=== PATIENT | male | born 1945 | race Caucasian/White ===

== ENCOUNTER 2016-08-24 13:26 | Emergency (ER) | payer MEDICARE ==
--- NOTE | 2016-08-24 13:33 | ER Document Report ---
ED General - General Stated Complaint: FALL/KNEE PAIN Time Seen by Provider: 08/24/16 13:33 Mode of Arrival: Ambulatory Information source: Patient Notes: 71 yr old male presents with complaints of right knee pain after a mechanical fall. Patient denies any other complaints, patient was given Toradol prior to arrival and defers on any narcotic treatment TRAVEL OUTSIDE OF THE [place] IN LAST 30 DAYS: No - HPI Onset: Just prior to arrival Onset/Duration: Sudden Quality of pain: Achy Severity: Mild Pain Level: 1 Associated symptoms: Body/muscle aches Exacerbated by: Movement Relieved by: Denies Similar symptoms previously: No Recently seen / treated by doctor: No - Related Data Allergies/Adverse Reactions: No Known Allergies Allergy (Verified 01/28/15 10:47) Past Medical History - Social History Smoking Status: Current Every Day Smoker Cigarette use (# per day): Yes Chew tobacco use (# tins/day): No Smoking Education Provided: No Family History: CAD - Dad had [place] at age 54. - Past Medical History Cardiac Medical History: Reports: Hx Hypertension Endocrine Medical History: Reports: Hx Diabetes Mellitus Type 2 Renal/ Medical History: Reports: Hx Kidney Stones Past Surgical History: Reports: Hx Kidney (Renal Surgery) - kidney stones, Hx Orthopedic Surgery - right knee ligament surgery - Immunizations Hx Diphtheria, Pertussis, Tetanus Vaccination: Yes Hx Pneumococcal Vaccination: 02/24/11 Review of Systems - Review of Systems Notes: REVIEW OF SYSTEMS: CONSTITUTIONAL : Denies fever, chills, or sweats. Denies recent illness. EENT: Denies eye, ear, throat, or mouth pain or symptoms. Denies nasal or sinus congestion or discharge. Denies throat, tongue, or mouth swelling or difficulty swallowing. CARDIOVASCULAR: Denies chest pain. Denies palpitations or racing or irregular heart beat. Denies ankle edema. RESPIRATORY: Denies cough, cold, or chest congestion. Denies shortness of breath, difficulty breathing, or wheezing. GASTROINTESTINAL: Denies abdominal pain or distention. Denies nausea, vomiting , or diarrhea. Denies blood in vomitus, stools, or per rectum. Denies black, tarry stools. Denies constipation. GENITOURINARY: Denies difficulty urinating, painful urination, burning, frequency, blood in urine, or discharge. MUSCULOSKELETAL: Admits to right knee pain SKIN: Denies rash, lesions or sores. HEMATOLOGIC : Denies easy bruising or bleeding. LYMPHATIC: Denies swollen, enlarged glands. NEUROLOGICAL: Denies confusion or altered mental status. Denies passing out or loss of consciousness. Denies dizziness or lightheadedness. Denies headache. Denies weakness or paralysis or loss of use of either side. Denies problems with gait or speech. Denies sensory loss, numbness, or tingling. Denies seizures. PSYCHIATRIC: Denies anxiety or stress. Denies depression, suicidal ideation, or homicidal ideation. ALL OTHER SYSTEMS REVIEWED AND NEGATIVE. Dictation was performed using [employer] recognition software PHYSICAL EXAMINATION: GENERAL: Well-appearing, well-nourished and in no acute distress. HEAD: Atraumatic, normocephalic. EYES: Pupils equal round and reactive to light, extraocular movements intact, sclera anicteric, conjunctiva are normal. ENT: Nares patent, oropharynx clear without exudates. Moist mucous membranes. NECK: Normal range of motion, supple without lymphadenopathy LUNGS: Breath sounds clear to auscultation bilaterally and equal. No wheezes rales or rhonchi. HEART: Regular rate and rhythm without murmurs ABDOMEN: Soft, nontender, nondistended abdomen. No guarding, no rebound. No masses appreciated. Musculoskeletal: Knee is edematous tender to palpation limited range of motion secondary to pain NEUROLOGICAL: Cranial nerves grossly intact. Normal speech, normal gait. Normal sensory, motor exams PSYCH: Normal mood, normal affect. SKIN: Warm, Dry, normal turgor, no rashes or lesions noted. Physical Exam - Vital signs Vitals: Temp Pulse Resp BP Pulse Ox 98.2 F 82 18 135/57 H 95 08/24/16 13:42 08/24/16 13:42 08/24/16 13:42 08/24/16 13:42 08/24/16 13:42 Course - Re-evaluation Re-evalutation: 08/24/16 13:38 X-ray pending 08/24/16 14:23 Dr. Anderson consulted and he will evaluate x-ray hleeives patient has tendon injury, requests immobilizer and follow up on friday08/24/16 15:45 at patientes request 80 cc of blood aspirated from knee , knee immobilizer placed, no complication - Vital Signs Vital signs: Temp Pulse Resp BP Pulse Ox 98.2 F 82 18 135/57 H 95 08/24/16 13:42 08/24/16 13:42 08/24/16 13:42 08/24/16 13:42 08/24/16 13:42 Procedures - Immobilization Right Knee Time completed: 15:50 Pre-Proc Neuro Vasc Exam: Normal Immobilizer type: Knee immobilizer Performed by: PCT Post-Proc Neuro Vasc Exam: Normal Alignment checked and good: Yes - Joint Aspiration Right Knee Time completed: 15:30 Consent obtained: Yes Joint aspiration pre-procedure: Sterile PPE donned, Betadine prep applied Anesthetic type: 1% Lidocaine mL's of anesthetic: 80 Needle size: 14 Amount/type of drainage: blood Number of attempts: 1 Complications: No Discharge - Discharge Clinical Impression: Knee effusion, right Knee injury Qualifiers: Encounter type: initial encounter Laterality: right Qualified Code(s): S89.91XA - Unspecified injury of right lower leg, initial encounter Condition: Stable Disposition: HOME, SELF-CARE Instructions: Suspected Internal Knee Injury ([facility]), Knee Effusion ([facility]), Knee Immobilizing Splint ([facility]) Referrals: JACKIE KU MD [Primary Care Provider] - Follow up as needed LAURE ANDERSON MD [ASSOCIATE] - 08/26/16
--- NOTE | 2016-08-24 14:14 | RADIOLOGY REPORT (SQ) ---
EXAM DESCRIPTION: KNEE RIGHT 4 VIEWS COMPLETED DATE/TIME: 08/24/2016 2:03 pm REASON FOR STUDY: BED 15 +DEFORMITY PER DR MOMIN COMPARISON: None. NUMBER OF VIEWS: Four views of the right knee. Obtained portably. LIMITATIONS: None. FINDINGS: Pronounced osteopenia. Marked medial joint space narrowing. No discrete fracture line de tected. Cross-table lateral view suggests joint effusion with fluid fluid level. This could represe nt lipohemarthrosis related to occult fracture. Regional vascular calcification. OTHER: No other significant finding. IMPRESSION: As above. Suspicious for occult fracture with lipohemarthrosis. Osteopenia limits. EDWARD Rae TECHNICAL DOCUMENTATION: JOB ID: [id number]
[2016-08-24 14:25] VITALS: BP 135/57
[2016-08-24] MEDS ORDERED: LIDOCAINE 1% INJ-PF (10 MG/ML) 30 ML SDV ONE (15:14)
[2016-08-24] MEDS ORDERED: LIDOCAINE 1% INJ-PF (10 MG/ML) 30 ML SDV INJ ONE (15:45)
== END 2016-08-24 16:20 | disposition home or self-care (01) ==
LOC: ER 13:26
PROC: 0S9C3ZZ Drainage of Right Knee Joint, Percutaneous Approach (ICD-10-PCS; principal; 2016-08-24)
DX: M25.461 Effusion, right knee (principal); M25.561 Pain in right knee; M79.1 Myalgia; F17.210 Nicotine dependence, cigarettes, uncomplicated; I10 Essential (primary) hypertension; E11.9 Type 2 diabetes mellitus without complications; Z87.442 Personal history of urinary calculi
CPT/HCPCS: 99283; 73564; 20610; L1830; J3490

== ENCOUNTER 2016-08-25 20:53 | Inpatient (IN) | payer OTHER, MEDICARE ==
[2016-08-25] MEDS ORDERED: MORPHINE SULFATE 10 MG/ML INJ ONE (22:35)
--- NOTE | 2016-08-25 22:43 | RADIOLOGY REPORT (SQ) ---
EXAM DESCRIPTION: HIP RIGHT AP/LATERAL COMPLETED DATE/TIME: 08/25/2016 10:27 pm REASON FOR STUDY: injury COMPARISON: None. NUMBER OF VIEWS: Two views, AP pelvis and cross-table lateral right hip. LIMITATIONS: None. FINDINGS: Osteopenic. Intratrochanteric right proximal femur fracture with slight varus angulation. Slight posterior angulation is also suggested. OTHER: No other gross pelvic fracture. Lumbar spondylosis. IMPRESSION: Right hip fracture as above. TECHNICAL DOCUMENTATION: JOB ID: [id number]
[2016-08-25 23:50] LABS: ALANINE AMINOTRANSFERASE 33 U/L (21-72); ALBUMIN 3.7 g/dL (3.5-5.0); ALKALINE PHOSPHATASE 93 U/L (38-126); ANION GAP 9 (5-19); ASPARTATE AMINO TRANSFERASE 17 U/L (17-59); BILIRUBIN,DIRECT 0.3 mg/dL (0.0-0.4); BILIRUBIN,TOTAL 0.8 mg/dL (0.2-1.3); BLOOD UREA NITROGEN 16 mg/dL (7-20); CALCIUM 8.7 mg/dL (8.4-10.2); CARBON DIOXIDE 29 mmol/L (22-30); CHLORIDE 101 mmol/L (98-107); CREATININE RESULT 0.88 mg/dL (0.52-1.25); GLUCOSE 121 mg/dL (75-110); POTASSIUM 3.5 mmol/L (3.6-5.0); SODIUM 138.6 mmol/L (137-145); TOTAL PROTEIN 6.7 g/dL (6.3-8.2)
[2016-08-25 23:53] LABS: ABSOLUTE MONOCYTES (AUTO) 0.8 10^3/uL (0.1-1.4); ABSOLUTE NEUT (AUTO) 10.3 10^3/uL (1.7-8.2); BASOPHILS % (AUTO) 0.3 % (0-2); EOSINOPHILS % (AUTO) 0.3 % (0-6); HEMATOCRIT 37.8 % (37.9-51.0); HEMOGLOBIN 12.4 g/dL (13.5-17.0); HGB HCT DIFFERENCE -0.6; LYMPHOCYTES % (AUTO) 7.8 % (13-45); MEAN CORPUSCULAR HEMOGLOBIN 31.7 pg (27.0-33.4); MEAN CORPUSCULAR HGB CONC 32.7 g/dL (32.0-36.0); MEAN CORPUSCULAR VOLUME 97 fl (80-97); MONOCYTES % (AUTO) 6.5 % (3-13); RED CELL DISTRIBUTION WIDTH 14.2 % (11.5-14.0); SEGMENTED NEUTROPHILS % (AUTO) 85.1 % (42-78); WHITE BLOOD COUNT 12.1 10^3/uL (4.0-10.5)
--- NOTE | 2016-08-25 23:53 | ER Document Report ---
ED Hip Pain/Injury - General Chief Complaint: Hip Injury Stated Complaint: FALL,HIP PAIN Time Seen by Provider: 08/25/16 22:36 Notes: Patient fell on his right hip earlier and now cannot stand or bear weight or walk on that leg. Patient was just here yesterday having twisted his right knee. His x-ray of the knee showed lipohemarthrosis suggesting an occult fracture. He was put in a knee immobilizer and to see Dr. Collazo in his office tomorrow. However, this afternoon he was trying to get up from the couch and manage the knee immobilizer and crutches and fell onto his right hip. No other injuries. Specifically, no head or neck injury or deficits. Denies nausea or vomiting. Denies urinary tract symptoms. Denies cough or cold or chest congestion. Denies fever. History of surgery on the right knee many years ago TRAVEL OUTSIDE OF THE [place] IN LAST 30 DAYS: No - Related Data Allergies/Adverse Reactions: No Known Allergies Allergy (Verified 08/25/16 22:59) Past Medical History - Social History Smoking Status: Current Every Day Smoker Frequency of alcohol use: None Drug Abuse: None Family History: Reviewed & Not Pertinent, CAD - Dad had [place] at age 54. Patient has suicidal ideation: No Patient has homicidal ideation: No - Past Medical History Cardiac Medical History: Reports: Hx Hypertension Endocrine Medical History: Reports: Hx Diabetes Mellitus Type 2 Renal/ Medical History: Reports: Hx Kidney Stones Past Surgical History: Reports: Hx Kidney (Renal Surgery) - kidney stones, Hx Orthopedic Surgery - right knee ligament surgery - Immunizations Hx Diphtheria, Pertussis, Tetanus Vaccination: Yes Hx Pneumococcal Vaccination: 02/24/11 Review of Systems - Review of Systems Notes: REVIEW OF SYSTEMS: CONSTITUTIONAL : Denies fever. EENT: Denies eye, ear, nose or mouth or throat pain or other symptoms. CARDIOVASCULAR: Denies chest pain. RESPIRATORY: Denies cough, chest congestion, or shortness of breath. GASTROINTESTINAL: Denies abdominal pain or nausea, vomiting, or diarrhea. GENITOURINARY: Denies difficulty or painful urinating, urinary frequency, blood in urine. MUSCULOSKELETAL: Denies back or neck pain. Pain in right hip, see HPI. Denies other joint pain or swelling. SKIN: Denies rash or skin lesions. NEUROLOGICAL: Denies LOC or altered mental status. Denies headache. Denies sensory loss or motor deficits. ALL OTHER SYSTEMS REVIEWED AND NEGATIVE. Physical Exam - Vital signs Vitals: Temp Pulse Resp BP Pulse Ox 98.2 F 95 18 165/84 H 96 08/25/16 21:07 08/25/16 21:07 08/25/16 21:07 08/25/16 21:07 08/25/16 21:07 Interpretation: Normal - Notes Notes: PHYSICAL EXAMINATION: GENERAL: Well-appearing, in no acute distress. Vital signs are all essentially normal. HEAD: Atraumatic, normocephalic. ENT: oropharynx clear without exudates. Moist mucous membranes. NECK: Normal range of motion, supple. LUNGS: Breath sounds clear and equal bilaterally. HEART: Regular rate and rhythm without murmurs. ABDOMEN: Soft, nontender. No guarding or rebound. BACK: No tenderness throughout entire back. EXTREMITIES: Pain in the right hip to press there and also with any movement of the right hip the patient has significant pain. Right leg in a knee immobilizer. I unwrapped the knee immobilizer and patient has an Christopher bandage around the knee itself. I palpated that area and I do not feel a lot of effusion. NEUROLOGICAL: Normal speech, unable to walk or bear weight on the right leg. Normal sensory, motor, and reflex exams. Awake, alert, and oriented x3. Cranial nerves normal. PSYCH: Normal mood, normal affect. SKIN: Warm, dry, no rashes. Course - Vital Signs Vital signs: Temp Pulse Resp BP Pulse Ox 98.2 F 95 18 165/84 H 96 08/25/16 21:07 08/25/16 21:07 08/25/16 21:07 08/25/16 21:07 08/25/16 21:07 - Laboratory Result Diagrams: 08/25/16 23:20 08/25/16 23:20 Laboratory results interpreted by me: 08/25/16 08/25/16 23:20 23:20 WBC 12.1 H RBC 3.90 L Hgb 12.4 L Hct 37.8 L RDW 14.2 H Seg Neutrophils % 85.1 H Lymphocytes % 7.8 L Absolute Neutrophils 10.3 H Potassium 3.5 L Glucose 121 H - Diagnostic Test Radiology results interpreted by me: 08/25/16 23:56 Patient x-ray reveals an intertrochanteric fracture of the right hip. I spoke with Dr. Velazquez, completion manager for Ortho and he asked that the patient be admitted to the hospitalist service. I spoke with Dr. Armenta who agreed to admit the patient. Patient will be admitted to telemetry. 08/26/16 00:03 Chest x-ray reveals COPD but no acute processes. Discharge - Discharge Clinical Impression: Intertrochanteric fracture of right hip Qualifiers: Encounter type: initial encounter Fracture type: closed Fracture alignment: nondisplaced Qualified Code(s): S72.144A - Nondisplaced intertrochanteric fracture of right femur, initial encounter for closed fracture Disposition: ADMITTED INPATIENT Admitting Provider: Hospitalist Unit Admitted: Telemetry
--- NOTE | 2016-08-25 23:58 | EKG REPORT ---
SEVERITY:- BORDERLINE ECG - SINUS RHYTHM BORDERLINE PROLONGED QT INTERVAL : Confirmed by: Armando Tripp 25-Aug-2016 23:58:09
--- NOTE | 2016-08-26 | RADIOLOGY REPORT (SQ) ---
EXAM DESCRIPTION: CHEST PA/LAT COMPLETED DATE/TIME: 08/25/2016 11:47 pm REASON FOR STUDY: Fracture hip, COPD COMPARISON: 01/28/2015. TECHNIQUE: Frontal and lateral radiographic views of the chest acquired. NUMBER OF VIEWS: Two view. LIMITATIONS: None. FINDINGS: LUNGS AND PLEURA: No opacities, masses or pneumothorax. No pleural effusion. MEDIASTINUM AND HILAR STRUCTURES: No masses or contour abnormalities. HEART AND VASCULAR STRUCTURES: Heart normal size. No evidence for failure. BONES: Osteopenic. HARDWARE: None in the chest. OTHER: No other significant finding. IMPRESSION: NO SIGNIFICANT RADIOGRAPHIC FINDING IN THE CHEST. TECHNICAL DOCUMENTATION: JOB ID: [id number] [employer]- All Rights Reserved
[2016-08-26 01:55] LABS: ADD ON TESTING BLD IN LAB ACKNOWLEDGE
[2016-08-26 02:07] LABS: MAGNESIUM 1.8 mg/dL (1.6-2.3)
[2016-08-26 02:43] LABS: APPEARANCE,URINE CLEAR; BILIRUBIN,URINE NEGATIVE (NEGATIVE); GLUCOSE, URINE 50 mg/dL (NEGATIVE); KETONES,URINE TRACE mg/dL (NEGATIVE); LEUKOCYTE ESTERASE,URINE TRACE (NEGATIVE); NITRITE,URINE NEGATIVE (NEGATIVE); PROTEIN,URINE NEGATIVE (NEGATIVE); URINE SPECIFIC GRAVITY 1.013; UROBILINOGEN,URINE NEGATIVE mg/dL (<2.0)
[2016-08-26] MEDS ORDERED: NICOTINE 21 MG/24 HR PATCH.TD24 TD PRN (02:48)
[2016-08-26] MEDS ORDERED: MAGNESIUM HYDROXIDE SUSP 30 ML UDCUP PO PRN ×2 (02:51→15:17)
[2016-08-26] MEDS ORDERED: GLUCAGON,HUMAN RECOMB 1 MG INJ SUBCUT PRN (02:51)
[2016-08-26] MEDS ORDERED: DEXTROSE 50%-WATER 25 GM/50 ML DISP.SYRIN IV PRN ×2 (02:51)
[2016-08-26] MEDS ORDERED: IPRATROPIUM/ALBUTEROL 0.5-2.5 MG/3 ML AMPUL NEB PRN (02:51)
[2016-08-26] MEDS ORDERED: DEXTROSE 40% GEL 15 GM TUBE PO PRN ×2 (02:51)
[2016-08-26] MEDS ORDERED: NORMAL SALINE 1000 ML 1,000 ML IV PRN (02:54)
[2016-08-26] MEDS ORDERED: PROMETHAZINE HCL 25 MG TABLET PO PRN (02:57)
[2016-08-26] MEDS ORDERED: POTASSIUM CHLORIDE 20 MEQ/15 ML UDCUP PO ONE ×2 (03:00→05:00)
--- NOTE | 2016-08-26 03:12 | PDOC H&P ---
History of Present Illness Admission Date/PCP: 08/26/16 00:12 MS Patient complains of: right hip pain, S/P fall History of Present Illness: GEETHA NAVARRO is a 71 year old male with underlying hypertension, nephrolithiasis, psoriasis, partial hearing loss who presents to the emergency room for evaluation of above complaint. Patient has been discussed with emergency room physician who evaluated the patient. Patient is globally disoriented and is able to provide no history whatsoever in terms of acute or chronic events, review of systems, personal habits, family history, etc. No friends or family are present. Old inpatient records are reviewed. Patient did tell the emergency room doctor earlier that he did not pass out and did not strike his head when he fell. Denied any other injuries. He was actually seen in the emergency room on the first after suffering a fall and twisting his right knee, with x-ray showing evidence of probably an occult fracture. Was placed in a knee immobilizer that time, and is actually scheduled to see Dr. Collazo in his office on the third. However, the afternoon of the second, as he was attempting to get up from his couch and manage his knee immobilizer and crutches, he fell onto his right hip. Could no longer stand due to the pain. X-rays revealed a right hip fracture. Orthopedics is aware and has agreed to manage this fracture. Denies nausea vomiting, fever chills, diarrhea or dysuria. No chest or abdominal pain. Laboratory results are listed in [facility] and are reviewed. X-ray summary results are listed below, with full report(s) reviewed. . EKG reviewed and compared to a prior tracing from January 30, 2015. Social history: . No further information available at this point in time. No known drug allergies. Home medications initially autopopulated into [employer] may not accurately reflect patient's true medications, dosages, and/or frequencies. lawn technician to reconcile medications. Unfortunately, patient not able to provide any information related to medications/dosages/frequencies. REVIEW OF SYSTEMS: See history and present illness. No further information available this point in time. PHYSICAL EXAMINATION: 6 feet 1 inches tall. 72.6 kg. BMI 21.1 kg/m. Pulse 87 and regular. 98% saturation on room air. Respirations are 17 and unlabored. Blood pressure 152/ 80. Temperature 98.1. Thin somewhat disheveled chronically ill-appearing bearded male who appears a bit older than his stated age. Pleasant awake alert and cooperative. No obvious distress other than somewhat anxious. Skin is warm and dry. No grossly obvious evidence of rash in areas of skin examined. No subcutaneous nodules palpated. Scattered small areas of psoriasis on his head and neck. ENT: Hearing grossly normal to normal conversation. Tongue midline on protrusion pink and slightly tacky. No willis sign. Eyes: No scleral icterus. Pupils equal and reactive to light at 4 mm. [place] conjunctivae. No raccoon eyes. Neck is supple and nontender to gentle active range of motion and palpation. Midline trachea. No palpable thyroid nodule mass enlargement or tenderness. Lymphatic: No palpable cervical or clavicular nodes. Neck and lymphatic exams limited by patient body habitus. Psychiatric: Globally disoriented. Provides non sequitur answers to basic questions. Lungs: Auscultation reveals clear and equal breath sounds bilaterally. No use of accessory respiratory muscles. Cardiovascular: Heart regular rate and rhythm, without gallop murmur or rub. No carotid or abdominal aortic bruits. No ankle or pedal edema. Palpable dorsalis pedis pulses. Abdomen:soft slightly distended nontender with positive bowel sounds. Unable to adequately evaluate abdomen for masses or organomegaly due to distention. Extremities: Feet are warm and dry. No calf tenderness to compression. No grossly obvious visual evidence of calf swelling. Gentle manipulation of left lower extremity fails to reveal any obvious evidence of injury or instability to knee hip or ankle. Christopher wrap in place around his right knee; left in place. Slight external rotation and foreshortening of the right lower extremity. No manipulation of right lower extremity attempted. Neurologic: Moves upper extremities grossly normally. Left patellar reflex absent; not attempted on right due to his injury.. Absent left Babinski; not checked on right due to his injury.. Light touch cannot be adequately evaluated due to his mental status.. Dorsiflexion and plantarflexion of feet 5 / 5 and symmetric. Past Medical History Past Medical History: Information from old records; patient cannot provide any information himself. Cardiac Medical History: Reports: Hypertension Endocrine Medical History: Reports: Diabetes Mellitus Type 2 Past Surgical History Past Surgical History: Information from old records; patient cannot provide any information himself. Past Surgical History: Reports: Orthopedic Surgery - right knee ligament surgery Social History Information Source: Emergency Med Personnel, [facility] Records Lives with: Family Smoking Status: Current Every Day Smoker - 1 pack a day. Frequency of Alcohol Use: None Hx Recreational Drug Use: No Drugs: None Hx Prescription Drug Abuse: No - Advance Directive Resuscitation Status: Do Not Resuscitate Surrogate healthcare decision maker:: Keenan Cornejo Family History Family History: Reviewed & Not Pertinent, CAD - Dad had [place] at age 54. Parental Family History Reviewed: No - Patient cannot provide any information related to same. Children Family History Reviewed: No - Patient cannot provide any information related to same. Sibling(s) Family History Reviewed.: No - Patient cannot provide any information related to same. Medication/Allergy Home Medications: RX: Metformin HCl [Glucophage 500 mg Tablet] 500 mg PO BID 09/07/11 Ciprofloxacin HCl [Cipro 500 mg Tablet] 500 mg PO BID #20 tablet 09/29/13 Tamsulosin HCl [Flomax 0.4 mg Cap.sr] 0.4 mg PO DAILY #7 cap.sr.24h 09/29/13 RX: Atenolol [Tenormin 50 mg Tablet] 50 mg PO Q12 08/26/16 RX: Clobetasol Propionate [Temovate 0.05% Cream 15 gm] 1 applic TP BID 08/26/16 RX: Nitroglycerin [Nitrostat 0.4 mg (1/150 Gr) Tabs 25/Bottle] 1 tab SL Q5MP PRN 08/26/16 RX: Selenium Sulfide 1 applic TP ASDIR PRN 08/26/16 Hydrocodone/Acetaminophen [Aspers 5-325 mg Tablet] 1 tab PO Q4HP PRN #20 tablet 08/30/16 RX: Acetaminophen [Tylenol 325 mg Tablet] 650 mg PO Q4HP PRN tablet 08/30/16 RX: Docusate Sodium [Colace 100 mg Capsule] 100 mg PO BID capsule 08/30/16 RX: Magnesium Hydroxide [Milk of Magnesia 30 ml Udcup] 30 ml PO Q48HP PRN udc 08/30/16 RX: Nicotine [Nicoderm 21 mg/24 Hr Transderm Patch] 1 each TD DAILYP PRN patch.td24 08/30/16 RX: Rivaroxaban [Xarelto 10 mg Tablet] 10 mg PO QHS tablet 08/30/16 Allergies/Adverse Reactions: No Known Allergies Allergy (Verified 08/25/16 22:59) Physical Exam Vital Signs: Temp Pulse Resp BP Pulse Ox 98.1 F 95 18 160/82 H 96 08/25/16 23:30 08/25/16 23:30 08/25/16 23:30 08/25/16 23:30 08/25/16 23:30 Results Laboratory Results: 08/26/16 02:25 Urine Color YELLOW Urine Appearance CLEAR Urine pH 6.0 Ur Specific [place] 1.013 Urine Protein NEGATIVE Urine Glucose (UA) 50 H Urine Ketones TRACE H Urine Blood SMALL H Urine Nitrite NEGATIVE Ur Leukocyte Esterase TRACE H Urine WBC (Auto) 8 Urine RBC (Auto) 4 Impressions: Hip/Pelvis X-Ray 08/25/16 00:00 IMPRESSION: Right hip fracture as above. Chest X-Ray 08/25/16 23:11 IMPRESSION: NO SIGNIFICANT RADIOGRAPHIC FINDING IN THE CHEST. Assessment & Plan - Diagnosis (1) Abnormal urinalysis Is this a current diagnosis for this admission?: YesPlan: Urine culture. (2) Confusion Is this a current diagnosis for this admission?: YesPlan: Probably due to an element of underlying dementia. Further outpatient workup per primary care provider. (3) Intertrochanteric fracture of right hip Qualifiers: Encounter type: initial encounter Fracture type: closed Fracture alignment: nondisplaced Qualified Code(s): S72.144A - Nondisplaced intertrochanteric fracture of right femur, initial encounter for closed fracture Is this a current diagnosis for this admission?: YesPlan: Dr. Collazo, on-call orthopedist, is aware of injury, and will manage patient. Knee high SCDs for DVT prophylaxis; medication prophylaxis per orthopedics, per usual protocol. Impression and plans were discussed with patient who concurs. Time spent in evaluation and management of patient: 58 minutes. (4) Knee injury Qualifiers: Encounter type: initial encounter Laterality: right Qualified Code( s): S89.91XA - Unspecified injury of right lower leg, initial encounter Is this a current diagnosis for this admission?: YesPlan: Dr. Collazo, on-call orthopedist, is aware of injury, and will manage patient. (5) DNR (do not resuscitate) Is this a current diagnosis for this admission?: YesPlan: Implications of DO NOT RESUSCITATE/DO NOT INTUBATE status discussed with keenan Cronejo at 2:45 AM, August 26, 2016, by telephone. Patient is a . Clemente is patient's surrogate healthcare decision maker. Discussed in layperson's terms. Implications understood. Son's conversation is lucid and appropriate. Son desires DO NOT RESUSCITATE/DO NOT INTUBATE status , as has been the case in previous admissions, per review of old records. Will honor his wishes. (6) Hypokalemia Is this a current diagnosis for this admission?: YesPlan: Potassium supplement. (7) Hypertension Qualifiers: Hypertension type: essential hypertension Qualified Code(s): I10 - Essential (primary) hypertension Is this a current diagnosis for this admission?: YesPlan: Resume home medications as appropriate once these have been determined and reviewed. (8) Tobacco abuse Is this a current diagnosis for this admission?: YesPlan: As needed nicotine patch. - Inpatient Certification Based on my medical assessment, after consideration of the patient's comorbidities, presenting symptoms, or acuity I expect that the services needed warrant INPATIENT care.: Yes I certify that my determination is in accordance with my understanding of Medicare's requirements for reasonable and necessary INPATIENT services [42 CFR 412.3e].: Yes Medical Necessity: Need For IV Fluids, Need for Pain Control, Need for Surgery, Risk of Diagnosis Which Will Require Inpatient Eval/Care/Monitoring Post Hospital Care: D/C or Transfer Summary
[2016-08-26 06:31] LABS: ABSOLUTE LYMPHOCYTES (AUTO) 1.2 10^3/uL (0.5-4.7); ABSOLUTE MONOCYTES (AUTO) 1.2 10^3/uL (0.1-1.4); ABSOLUTE NEUT (AUTO) 9.2 10^3/uL (1.7-8.2); BASOPHILS % (AUTO) 0.3 % (0-2); EOSINOPHILS % (AUTO) 0.1 % (0-6); HEMATOCRIT 34.1 % (37.9-51.0); HEMOGLOBIN 11.4 g/dL (13.5-17.0); HGB HCT DIFFERENCE 0.1; LYMPHOCYTES % (AUTO) 10.2 % (13-45); MEAN CORPUSCULAR HEMOGLOBIN 31.5 pg (27.0-33.4); MEAN CORPUSCULAR HGB CONC 33.5 g/dL (32.0-36.0); MEAN CORPUSCULAR VOLUME 94 fl (80-97); MONOCYTES % (AUTO) 10.2 % (3-13); RED BLOOD COUNT 3.62 10^6/uL (4.35-5.55); RED CELL DISTRIBUTION WIDTH 13.9 % (11.5-14.0); SEGMENTED NEUTROPHILS % (AUTO) 79.2 % (42-78); WHITE BLOOD COUNT 11.7 10^3/uL (4.0-10.5)
[2016-08-26 07:13] LABS: PROTHROMBIN TIME 16.1 SEC (11.4-15.4)
[2016-08-26 07:14] LABS: PARTIAL THROMBOPLASTIN TIME 36.5 SEC (23.5-35.8)
--- NOTE | 2016-08-26 07:34 | PDOC CONSULTATION ---
Consultation Consult Date: 08/26/16 Consult reason:: Right hip fracture History of Present Illness Admission Date/PCP: 08/26/16 02:51 History of Present Illness: This is a 71-year-old white male who initially presented to the emergency room several days ago with a tentative diagnosis of a right knee extensor mechanism disruption. He then re-presented to the emergency room unable to bear weight on the right lower extremity and diagnosed with a right basicervical femoral neck fracture. Past Medical History Cardiac Medical History: Reports: Hypertension Endocrine Medical History: Reports: Diabetes Mellitus Type 2 Social History Information Source: [facility] Records Lives with: Family Smoking Status: Current Every Day Smoker Frequency of Alcohol Use: None Hx Recreational Drug Use: No Drugs: None Hx Prescription Drug Abuse: No - Advance Directive Resuscitation Status: Do Not Resuscitate Family History Family History: Reviewed & Not Pertinent, CAD - Dad had [place] at age 54. Parental Family History Reviewed: No Children Family History Reviewed: No Sibling(s) Family History Reviewed.: No Medication/Allergy Home Medications: Metformin HCl [Glucophage 500 mg Tablet] 500 mg PO BID 09/07/11 Ciprofloxacin HCl [Cipro 500 mg Tablet] 500 mg PO BID #20 tablet 09/29/13 Tamsulosin HCl [Flomax 0.4 mg Cap.sr] 0.4 mg PO DAILY #7 cap.sr.24h 09/29/13 Allergies/Adverse Reactions: No Known Allergies Allergy (Verified 08/25/16 22:59) Review of Systems All systems: as per [facility] Physical Exam Vital Signs: Temp Pulse Resp BP Pulse Ox 36.7 C 100 18 152/62 H 96 08/26/16 03:05 08/26/16 04:04 08/26/16 03:05 08/26/16 03:05 08/26/16 03:05 Intake & Output 08/25/16 08/26/16 08/27/16 06:59 06:59 06:59 Intake Total 100 Output Total 350 Balance -250 General appearance: PRESENT: no acute distress, thin Head exam: PRESENT: normocephalic Eye exam: PRESENT: EOMI Respiratory exam: PRESENT: unlabored Cardiovascular exam: PRESENT: RRR Pulses: PRESENT: +1 pedal pulses bilateral Vascular exam: PRESENT: normal capillary refill GI/Abdominal exam: PRESENT: soft Rectal exam: PRESENT: deferred Extremities exam: PRESENT: other - Knee is wrapped in an Christopher wrap. This is removed. There is a considerable right knee effusion. Patient is unable to extend the right knee. Overall alignment of the right lower extremity shortened and externally rotated. Passive range of motion is painful. Distal neurovascular examination is intact. Neurological exam: PRESENT: alert, other - Patient is confused and inappropriate in his verbal responses Skin exam: PRESENT: dry, intact, warm. ABSENT: cyanosis, rash Results Laboratory Results: 08/26/16 06:22 08/26/16 06:22 WBC 11.7 H RBC 3.62 L Hgb 11.4 L Hct 34.1 L MCV 94 MCH 31.5 MCHC 33.5 RDW 13.9 Plt Count 198 Seg Neutrophils % 79.2 H Lymphocytes % 10.2 L Monocytes % 10.2 Eosinophils % 0.1 Basophils % 0.3 Absolute Neutrophils 9.2 H Absolute Lymphocytes 1.2 Absolute Monocytes 1.2 Absolute Eosinophils 0.0 Absolute Basophils 0.0 Impressions: Hip/Pelvis X-Ray 08/25/16 00:00 IMPRESSION: Right hip fracture as above. Chest X-Ray 08/25/16 23:11 IMPRESSION: NO SIGNIFICANT RADIOGRAPHIC FINDING IN THE CHEST. Status: Imported from PACS Assessment & Plan - Diagnosis (1) Displaced fracture of right femoral neck Is this a current diagnosis for this admission?: YesPlan: With basicervical right femoral neck fracture. Plan will be for proximal femoral hemiarthroplasty under choice anesthesia. (2) Rupture of right patellar tendon Is this a current diagnosis for this admission?: YesPlan: The patient's mental status makes it difficult if not impossible to extract any meaningful information. Of note in the chart as previous extensor mechanism surgery. At this point I think more information needs to be gathered before making a treatment plan. - Time Time Spent: 50 to 70 Minutes Anticipated discharge: SNF Within: Other
[2016-08-26] MEDS ORDERED: TRANEXAMIC ACID INJ/PF 1,000 MG/10 ML SDV IV PRN (08:37)
[2016-08-26] MEDS ORDERED: VANCOMYCIN HCL 1,000 MG in DEXTROSE 5%-WATER 250 ML IV PRN (08:37)
[2016-08-26] MEDS ORDERED: RINGERS SOLUTION,LACTATED 1,000 ML IV PRN (08:38)
[2016-08-26] MEDS ORDERED: ONDANSETRON HCL INJ/PF 4 MG/2 ML SDV ONE (09:07)
[2016-08-26] MEDS ORDERED: LIDOCAINE 2% INJ-PF (20 MG/ML) 10 ML AMPUL ONE (09:07)
[2016-08-26] MEDS ORDERED: DEXAMETHASONE SOD PHOSPHATE INJ 4 MG/1 ML VIAL ONE (09:07)
[2016-08-26] MEDS: DOCUSATE SODIUM 100 MG CAPSULE PO SCH ×2 (10:40→17:24)
--- NOTE | 2016-08-26 10:58 | PROGRESS NOTE E ---
Progress Note NAME: GEETHA NAVARRO : 1945 AGE: 71Y DATE: 08/26/2016 ROOM: 402 SUBJECTIVE: The patient is lying in bed. He states he feels okay today. He is going to the OR this morning. The patient denies any nausea, vomiting, or diarrhea. No shortness of breath, dizziness, or chest pain. No fever or chills. The patient has been afebrile. His blood pressures have been in a good range. The patient does not voice any other concerns at this time. REVIEW OF SYSTEMS: Rest of the review of systems negative. MEDICATIONS: Have been reviewed. OBJECTIVE: GENERAL: The patient is a 71-year-old male who is awake and alert. He is oriented to person, place, time, and situation. He is verbal, conversational, ambulatory, and does not appear to be in any acute distress. VITAL SIGNS: Temperature 98.2, pulse 91, respirations 12, blood pressure 132/75, oxygen saturation is 100% on room air. SKIN: Warm and dry. No rash. He is not diaphoretic. HEENT: Pupils equal, round, reactive to light and accommodation. Conjunctivae are pink. No JVP. CARDIOVASCULAR: Heart is regular. There is no murmur or rub. CHEST: Clear, symmetrical, unlabored. ABDOMEN: Soft, nontender, nondistended. BACK: No CVA tenderness or sacral edema. EXTREMITIES: No clubbing, cyanosis, or edema. PSYCHIATRIC: Appropriate affect. Pleasant mood. DIAGNOSTICS: Lab values are as follows: Hematology obtained on 08/26/2016: WBCs are 11.7, hemoglobin is 11.4, hematocrit is 34.1, platelet count is 198,000. Chemistry obtained on 08/26/2016: Potassium is 3.8, troponin is 0.012, magnesium is 1.8. Microbiology obtained on 08/26/2016 is pending. IMPRESSION AND PLAN: 1. RIGHT BASICERVICAL FEMORAL NECK FRACTURE. The patient is to go to the OR today. Will consult for SNF placement and follow. 2. HYPERTENSION. It appears the patient has not been taking his medications. Will resume an MARGARITA inhibitor and follow. 3. ABNORMAL URINALYSIS. Urine culture is pending. Will follow. 4. TOBACCO DEPENDENCY. Spend 3 minutes discussing tobacco cessation education. The patient declines any pharmacological intervention at this time but is agreeable to a p.r.n. nicotine patch. 5. DIABETES MELLITUS TYPE 2. Looks like this is fairly well controlled. Will continue sliding scale coverage. 6. DVT PROPHYLAXIS. As per Orthopedics. DISPOSITION: The patient is a DO NOT RESUSCITATE/DO NOT INTUBATE. Pending patient's symptomatology and diagnostic findings, will reevaluate in the a.m. Time spent on this followup including assessment, plan, physical examination, patient education, and review of records is 30 minutes. DICTATING PHYSICIAN: SHREE ARNOLD NP [id number] PHY#: [id number] [id number] JOB#: [id number] ACCT: [id number] cc: >
[2016-08-26] MEDS: MORPHINE SULFATE 10 MG/ML INJ IV PRN ×2 (13:03→22:33)
[2016-08-26] MEDS ORDERED: NITROGLYCERIN 0.4 MG/TAB 25 TAB/BOTTLE SL PRN (16:04)
[2016-08-26] MEDS ORDERED: ATENOLOL 50 MG TABLET PO ONE (17:00)
--- NOTE | 2016-08-26 19:46 | XCELERA REPORT ---
[address] [address] Transthoracic Echocardiogram Report Name: GEETHA NAVARRO Age: 71 yrs Gender: Male : 1945 Patient Status: Inpatient Patient Location: 4N\S\402\S\A Study Date: 08/26/2016 04:18 PM Height: 73 in Weight: 160 lb BSA: 2.0 m2 Procedure: A two-dimensional transthoracic echocardiogram with color flow and Doppler was performed. Study Quality: Technically suboptimal. Reason For Study: SYNCOPE / PREOPERATIVE CARDIAC EXAM History: SYNCOPE / PREOPERATIVE CARDIAC EXAM. Ordering Physician: SHREE ARNOLD Performed By: Eden Quinonez Interpretation Summary pROBABLY NORMAL lv SIZE, WALL MOTION AND LVEF .(60%).NO LVH. The left atrial size is normal. There is no evidence of mitral valve prolapse. There is a trace amount of tricuspid regurgitation There is no tricuspid stenosis. Right ventricular systolic pressure is normal. RVSP is 23 to 28 mm of Hg , with RA mean of 5 to 10. There is no aortic valve stenosis No aortic regurgitation is present. MMode/2D Measurements \T\ Calculations RVDd: 3.6 cm LVIDd: 4.4 cmFS: 32.7 % Ao root diam: 3.6 cm IVSd: 1.3 cm LVIDs: 2.9 cmEDV(Teich): 85.9 ml LVPWd: 1.1 cmESV(Teich): 33.2 ml Ao root area: 10.4 cm2 EF(Teich): 61.4 % LVOT diam: 2.2 cm LVOT area: 3.8 cm2 Doppler Measurements \T\ Calculations MV E max janene: MV dec slope: Ao V2 max: LV V1 max P.5 cm/sec 419.8 cm/sec2 175.1 cm/sec 5.4 mmHg MV A max janene: MV dec time: Ao max PG: LV V1 max: 103.6 cm/sec 0.21 sec 12.3 mmHg 116.2 cm/sec MV E/A: 0.85 ABDOULAYE(V,D): 2.5 cm2 PA V2 max: TR max janene: 108.2 cm/sec 215.3 cm/sec PA max P.7 mmHgTR max P.5 mmHg Left Ventricle pROBABLY NORMAL lv SIZE, WALL MOTION AND LVEF .(60%).NO LVH. Doppler measurements suggest impaired left ventricular relaxation, which is associated with grade I/IV or mild diastolic dysfunction. Right Ventricle The right ventricle is not well visualized secondary to technical limitations. Atria Right atrium not well visualized secondary to technical limitations. The left atrial size is normal. Mitral Valve There is no evidence of mitral valve prolapse. There is no vegetation seen on the mitral valve. There is no mitral valve stenosis. There is no mitral regurgitation noted. Aortic Valve There is no aortic valve stenosis. No aortic regurgitation is present. Tricuspid Valve There is no tricuspid stenosis. There is a trace amount of tricuspid regurgitation. Right ventricular systolic pressure is normal. RVSP is 23 to 28 mm of Hg , with RA mean of 5 to 10. Pulmonic Valve The pulmonic valve is not well visualized. Great Vessels The aortic root is not well visualized. Effusions There is no pericardial effusion. : SHREE ARNOLD > Shonna King
[2016-08-26 23:54] LABS: PROTHROMBIN TIME 15.7 SEC (11.4-15.4)
[2016-08-26 23:55] LABS: PARTIAL THROMBOPLASTIN TIME 37.1 SEC (23.5-35.8)
[2016-08-27] MEDS: MORPHINE SULFATE 10 MG/ML INJ IV PRN (02:45)
[2016-08-27] MEDS: ATENOLOL 50 MG TABLET PO SCH ×2 (05:58→17:03)
[2016-08-27 07:46] LABS: HEMATOCRIT 34.3 % (37.9-51.0); HEMOGLOBIN 11.4 g/dL (13.5-17.0); HGB HCT DIFFERENCE -0.1; MEAN CORPUSCULAR HEMOGLOBIN 32.1 pg (27.0-33.4); MEAN CORPUSCULAR HGB CONC 33.2 g/dL (32.0-36.0); MEAN CORPUSCULAR VOLUME 97 fl (80-97); RED BLOOD COUNT 3.55 10^6/uL (4.35-5.55); RED CELL DISTRIBUTION WIDTH 13.9 % (11.5-14.0); WHITE BLOOD COUNT 10.2 10^3/uL (4.0-10.5)
[2016-08-27 08:05] LABS: ANION GAP 8 (5-19); BLOOD UREA NITROGEN 10 mg/dL (7-20); CALCIUM 8.4 mg/dL (8.4-10.2); CARBON DIOXIDE 28 mmol/L (22-30); CHLORIDE 103 mmol/L (98-107); CREATININE RESULT 0.74 mg/dL (0.52-1.25); GLUCOSE 105 mg/dL (75-110); MAGNESIUM 1.8 mg/dL (1.6-2.3); POTASSIUM 3.9 mmol/L (3.6-5.0); SODIUM 138.5 mmol/L (137-145)
[2016-08-27] MEDS ORDERED: KETAMINE HCL INJ 500 MG/10 ML VIAL ONE (08:12)
[2016-08-27] MEDS ORDERED: PROPOFOL INJ 200 MG/20 ML VIAL IV ONE (08:13)
--- NOTE | 2016-08-27 08:13 | PDOC PROGRESS REPORT ---
Subjective Progress Note for:: 08/27/16 Subjective:: 71-year-old male who sustained a fall onto his right lower extremity on Friday Was seen at the emergency room where x-rays were negative for any possible head soft tissue injury. Ultimately the next day while continued to ambulate with crutches she sustained a second fall onto his right hip resulting in hip fracture. Patients son at bedside. Does complain of pain in his right hip. Physical Exam Vital Signs: Temp Pulse Resp BP Pulse Ox 98.1 F 74 20 128/64 H 97 08/27/16 08:07 08/27/16 08:07 08/27/16 08:07 08/27/16 04:00 08/27/16 08:07 Intake & Output 08/26/16 08/27/16 08/28/16 06:59 06:59 06:59 Intake Total 100 1263 Output Total 350 700 Balance -250 563 Weight 59.3 kg Musculoskeletal exam: PRESENT: other - Right hip: Short and externally rotated. Positive logroll. Tenderness along the anterior aspect of the minimal effusion. Intact plantar flexion/dorsiflexion. No calf tenderness. Results Laboratory Results: 08/27/16 07:33 08/26/16 08/27/16 06:22 07:33 WBC 10.2 RBC 3.55 L Hgb 11.4 L Hct 34.3 L MCV 97 MCH 32.1 MCHC 33.2 RDW 13.9 Plt Count 204 Potassium 3.8 Impressions: Hip/Pelvis X-Ray 08/25/16 00:00 IMPRESSION: Right hip fracture as above. Chest X-Ray 08/25/16 23:11 IMPRESSION: NO SIGNIFICANT RADIOGRAPHIC FINDING IN THE CHEST. Assessment & Plan - Diagnosis (1) Intertrochanteric fracture of right hip Qualifiers: Encounter type: initial encounter Fracture type: closed Fracture alignment: nondisplaced Qualified Code(s): S72.144A - Nondisplaced intertrochanteric fracture of right femur, initial encounter for closed fracture Is this a current diagnosis for this admission?: YesPlan: I once again discussed treatment options with the son including operative versus nonoperative intervention along with the plan to diagnose his right knee injury but given the acuity and urgency of the hip we will proceed with hip fixation prior to Complete workup of his knee discomfort. Risks and benefits have been explained including anesthetic complications, excessive bleeding, infection, injury to surrounding nerves, vessels and tendons, bruising, healing difficulties, scar formation, posttraumatic arthritis and any unforseen complication. Patient has verbalized understanding consented for the procedure.
[2016-08-27] MEDS ORDERED: CEFAZOLIN INJ 1 GM VIAL ONE (08:26)
[2016-08-27] MEDS ORDERED: MIDAZOLAM 2 MG/2 ML INJ ONE (08:26)
[2016-08-27] MEDS ORDERED: RINGERS SOLUTION,LACTATED 1,000 ML IV PRN (10:24)
--- NOTE | 2016-08-27 10:24 | Operative Report ---
Operative Report DATE OF SURGERY: 08/27/16 PREOPERATIVE DIAGNOSIS: Right Intertrochanteric Fracture POSTOPERATIVE DIAGNOSIS: Same OPERATION: Right Short Gamma Nail (Cephalomedullary Nail) SURGEON: CJ ANDERSON ANESTHESIA: Spinal COMPLICATIONS: None ESTIMATED BLOOD LOSS: 55cc PROCEDURE: Indication for Above Procedure: 71-year-old male who lives at home with her son who sustained a fall on Friday injuring his right knee. He was seen at the emergency room where x- rays were negative. Subsequently the next day when he was attempting to ambulate with crutches he sustained a fall onto his right hip unable to ambulate after this fall brought to emergency room where x-rays demonstrated fracture. Patient was seen and evaluated by internal medicine and cardiology was deemed medically stable for operative intervention. Risks and benefits were explained to the patient and son verbalized understanding consented for the procedure. Patient was seen and evaluated in the preoperative holding area. Procedure in Detail: The right lower extremity was initialized and marked. Patient received 2 g Ancef IV for bacterial prophylaxis. Patient was taken back to the operative room where transferred operative table. Patient was placed under spinal anesthesia. Once adequate anesthetized he was carefully placed onto the hip positioner the nonoperative lower extremity and bilateral upper extremities were carefully padded and the peroneal nerve was padded and on the nonoperative extremity. The operative extremity was placed in a traction along with adduction and internal rotation. A surgical team debriefing was performed ensuring all instrumentation was available, the surgical procedure was discussed with possible concerns reviewed. A timeout was done identifying correct patient, procedure and extremity everyone in attendance agree with this and verbalized no concerns. Reduction maneuver with the use of the hip traction table were done and C-arm fluoroscopy was used to confirm optimal reduction of the intertrochanteric fracture. Once this was confirmed the lower extremity was prepped with chlor prep and draped in a sterile fashion. At this point a small skin incision was made proximal to the greater trochanter. The guidewire was placed onto the tip of the trochanter advanced down to the level of the lesser trochanter. AP and lateral fluoroscopy was used to confirm appropriate placement of the guidewire. The skin incision was then extended and the underlying fascia opened up carefully to the tip of the greater trochanter. The entry reamer was then used and advanced to the level of the lesser trochanter. At this point Juliet short gamma nail was opened up and placed onto the aiming arm and advanced down the shaft of the femur. AP and lateral fluoroscopy was then used to confirm appropriate placement of the nail. Then turned my attention to the compression screw fixation in the femoral head. The trochars were advanced to the skin, a skin incision was made, careful dissection down to the fascia to the lateral femoral cortex was then partaken. The guidewire was then used and placed in the center center position with the tip apex distance less than 25 mm. Once this position was obtained the size of the compression screw was measured. Prior to placement of the compression screw because of the basicervical nature of the fracture I felt patient required derotational screw. The guidewire for the compression screw was placed anterior and superior to the trajectory of the compression screw then placed a partially threaded compression screw obtaining fixation. AP and lateral fluoroscopy used to confirm appropriate placement of our guide wire and compression screw. The step reamer was used to drill up through the femoral neck and head. I then carefully advanced the compression screw into position. AP and lateral fluoroscopy was done to confirm appropriate placement of the compression screw this was then locked into position proximally. The compression screw was then disengaged from its mounting device and the guidewire was removed. Lastly proceeded with locking of the nail distally. Using the aiming arm the trochars were advanced to the skin, a skin incision was made. Careful dissection done with a hemostat to the lateral cortex of the femur. I then drilled the near and far cortices. Measured the appropriate sized distal locking screw and secured it into position. At this point AP/lateral and oblique views of the proximal and distal aspect of the nail were taken confirming appropriate placement of the compression screw, distal locking screw and intramedullary nail. Once this was confirmed I proceeded with copious irrigation of the proximal and distal wounds. The deep tissues were closed with 0 Vicryl suture, subcutaneous tissues were closed with 3-0 Vicryl suture. The skin was closed a running 3-0 subcuticular Monocryl suture and reinforced with Dermabond & Steri-Strips. A dressing was placed. Sponge counts, instrument counts and needle counts were correct. Patient was then transferred from the operating room table to the operating room stretcher. The was no intraoperative complications patient tolerated procedure well was stable to PACU. Implants used: Juliet 11 x 180 mm 125 Short Gamma Nail with a 95 mm compression screw Postoperative plan: Patient will begin physical therapy on postop day #1, WBAT w / Knee Immobilizer. Start DVT prophylaxis with Xarelto daily.
[2016-08-27] MEDS ORDERED: ONDANSETRON HCL INJ/PF 4 MG/2 ML SDV IV PRN (10:51)
[2016-08-27] MEDS ORDERED: MORPHINE SULFATE 10 MG/ML INJ IV PRN (10:51)
[2016-08-27] MEDS ORDERED: FENTANYL CITRATE INJ/PF 100 MCG/2 ML AMPUL IV PRN ×2 (10:51)
[2016-08-27] MEDS ORDERED: DIPHENHYDRAMINE HCL 50 MG/ML VIAL IV PRN (10:51)
[2016-08-27] MEDS ORDERED: PROMETHAZINE HCL INJ 25 MG/1 ML VIAL IV PRN (10:51)
[2016-08-27] MEDS ORDERED: MEPERIDINE HCL/PF INJ 25 MG/1 ML DISP.SYRIN IV PRN (10:51)
--- NOTE | 2016-08-27 10:51 | RADIOLOGY REPORT (SQ) ---
EXAM DESCRIPTION: HIP IN OPERATING RM COMPLETED DATE/TIME: 08/27/2016 10:11 am REASON FOR STUDY: IM NAIL RIGHT HIP COMPARISON: 08/25/2016 preoperative. FLUOROSCOPY TIME: 1.6 minutes 5 images saved to PACS. TECHNIQUE: Intra-operative images acquired during surgical procedure to evaluate progress. NUMBER OF IMAGES: 5 LIMITATIONS: None. FINDINGS: Images reveal open reduction internal fixation of right hip fracture. Anatomic alignment. Please correlate with operative note. IMPRESSION: IMAGE(S) OBTAINED DURING PROCEDURE. COMMENT: Quality ID [id number]: Final reports for procedures using fluoroscopy that document radiation exp osure indices, or exposure time and number of fluorographic images (if radiation exposure indices are not available) Please consult full operative report of the attending physician for description of the procedure. TECHNICAL DOCUMENTATION: JOB ID: [id number] [employer]- All Rights Reserved
[2016-08-27] MEDS: DOCUSATE SODIUM 100 MG CAPSULE PO SCH ×2 (11:42→17:02)
[2016-08-27] MEDS ORDERED: CEFAZOLIN 1 GM/D5W RTU 50 ML IV SCH (12:00)
--- NOTE | 2016-08-27 14:34 | PDOC PROGRESS REPORT ---
Subjective Progress Note for:: 08/27/16 Subjective:: Patient is seen on morning rounds. He has just returned from the OR after ORIF of his hip. He is resting comfortably . He awakens to verbal stimuli. He denies any shortness of breath or chest pain. He denies any significant pain or arthralgias. He denies any abdominal pain, nausea or vomiting. No family is presently available. Rest of review of systems is negative Physical Exam Vital Signs: Temp Pulse Resp BP Pulse Ox 97.3 F 66 12 133/57 H 99 08/27/16 13:30 08/27/16 13:30 08/27/16 13:30 08/27/16 13:30 08/27/16 13:30 Intake & Output 08/26/16 08/27/16 08/28/16 06:59 06:59 06:59 Intake Total 100 1263 1250 Output Total 350 700 385 Balance -250 563 865 Weight 59.3 kg General appearance: PRESENT: no acute distress, well-developed, well-nourished Head exam: PRESENT: atraumatic, normocephalic Eye exam: PRESENT: conjunctiva pink, EOMI, PERRLA. ABSENT: scleral icterus Ear exam: PRESENT: normal external ear exam Mouth exam: PRESENT: moist, tongue midline Teeth exam: PRESENT: poor dentation Neck exam: ABSENT: carotid bruit, JVD, lymphadenopathy, thyromegaly Respiratory exam: PRESENT: clear to auscultation nickie. ABSENT: rales, rhonchi, wheezes Cardiovascular exam: PRESENT: RRR. ABSENT: diastolic murmur, rubs, systolic murmur Pulses: PRESENT: normal carotid pulses Vascular exam: PRESENT: normal capillary refill GI/Abdominal exam: PRESENT: normal bowel sounds, soft. ABSENT: distended, guarding, mass, organolmegaly, rebound, tenderness Rectal exam: PRESENT: deferred Extremities exam: PRESENT: tenderness - left hip Musculoskeletal exam: PRESENT: normal inspection, tenderness Neurological exam: PRESENT: alert, awake, oriented to person, oriented to place , oriented to time, oriented to situation, CN II-XII grossly intact. ABSENT: motor sensory deficit Psychiatric exam: PRESENT: appropriate affect, normal mood. ABSENT: homicidal ideation, suicidal ideation Skin exam: PRESENT: dry, intact, warm. ABSENT: cyanosis, rash Results Laboratory Results: 08/27/16 07:33 08/27/16 07:33 08/27/16 08/27/16 07:33 07:33 WBC 10.2 RBC 3.55 L Hgb 11.4 L Hct 34.3 L MCV 97 MCH 32.1 MCHC 33.2 RDW 13.9 Plt Count 204 Sodium 138.5 Potassium 3.9 Chloride 103 Carbon Dioxide 28 Anion Gap 8 BUN 10 Creatinine 0.74 Est GFR ( Amer) > 60 Est GFR (Non-Af Amer) > 60 Glucose 105 Calcium 8.4 Magnesium 1.8 Impressions: Hip/Pelvis X-Ray 08/25/16 00:00 IMPRESSION: Right hip fracture as above. Chest X-Ray 08/25/16 23:11 IMPRESSION: NO SIGNIFICANT RADIOGRAPHIC FINDING IN THE CHEST. Hip X-Ray 08/27/16 00:00 IMPRESSION: IMAGE(S) OBTAINED DURING PROCEDURE. Assessment & Plan - Diagnosis (1) Displaced fracture of right femoral neck Is this a current diagnosis for this admission?: YesPlan: Patient was taken to the OR today by orthopedic surgery (2) DNR (do not resuscitate) Is this a current diagnosis for this admission?: YesPlan: Patient's son is his MPOA (3) Emphysema Qualifiers: Emphysema type: unspecified Qualified Code(s): J43.9 - Emphysema, unspecified Is this a current diagnosis for this admission?: YesPlan: Continue aggressive pulmonary toilet and prn nebulizer treatments (4) Hypertension Qualifiers: Hypertension type: essential hypertension Qualified Code(s): I10 - Essential (primary) hypertension Is this a current diagnosis for this admission?: YesPlan: Presently normotensive on current medications (5) Tobacco abuse Is this a current diagnosis for this admission?: YesPlan: Counseled (6) Confusion Is this a current diagnosis for this admission?: YesPlan: Baseline, secondary to vascular dementia - Time Time Spent with patient: 25-34 minutes Critical Time spent with patient: 25-34 minutes Medications reviewed and adjusted accordingly: Yes Anticipated discharge: SNF Within: when bed available
[2016-08-27] MEDS: CEFAZOLIN 1 GM/D5W RTU 1 GM/50 ML RTUPB IV SCH ×2 (15:59→21:51)
--- NOTE | 2016-08-27 20:54 | CONSULTATION REPORT E ---
Consultation Report NAME: GEETHA NAVARRO : 1945 AGE: 71Y DATE: 08/27/2016 402 A TO: ALEKSANDAR CAIN M.D. FROM: ENIO LIZARRAGA M.D. Requesting Physician Note that the patient was briefly seen on 08/26/2016 evening, and a small note is written on the chart saying that the patient is an acceptable risk for the right hip surgery under spinal or general anesthesia. Formal consult done on 08/27/2016, and the patient was seen at 8:00 a.m. and afterwards discussed with the anesthesiologist that the patient is an acceptable risk. REASON FOR CONSULTATION: Preoperative cardiac risk assessment for the patient with a history of diabetes mellitus and hypertension. HISTORY OF PRESENT ILLNESS: The patient is a poor historian. The patient states that he tripped and fell and had right hip pain, and he was brought to the emergency room where he was found to have a right hip fracture, and the patient is scheduled for surgery. Initially the patient was taken to the OR but was returned back to his room without having had surgery done since they wanted a cardiac risk assessment on the patient. The patient states he denies any syncope, dizziness, or near syncope which caused the fall. He says he tripped accidentally. The patient denies any chest pain or discomfort. There is no cough or sputum production. There are no palpitations. There is no PND, orthopnea, or leg edema. PAST MEDICAL HISTORY: The patient is not a very good historian: 1. He has a history of hypertension which is well controlled as per the patient. 2. He has a history of diabetes mellitus. 3. He denies any COPD, but the patient is a smoker, and his physical examination is conducive to COPD. He denies any wheezing. There is no history of sleep apnea, no history of pulmonary embolism. 4. The patient has a history of diabetes mellitus but no history of chronic kidney disease or thyroid disease. 5. There is no history of TIA or CVA. 6. The patient denies any history of anxiety or depression. 7. The patient is slightly confused. 8. He denies any fevers, chills, or rigors. PAST SURGICAL HISTORY: Positive for right knee ligament surgery. DISPOSITION: This patient is a DNR. His son is his surrogate healthcare decision maker. FAMILY HISTORY: Father at the age of 54 with an RI. No other pertinent medical history with his siblings or parents. SOCIAL HISTORY: This patient is a smoker. He smokes one packet a day. There is no history of EtOH abuse. REVIEW OF SYSTEMS: CONSTITUTIONAL: Limited but the patient denies any fevers, chills, or rigors. Denies any generalized fatigue or weakness. HEAD: Denies any headaches or head injury. EYES: No history of amblyopia or diplopia. No history of amaurosis fugax. EARS: No history of hearing loss. No history of tinnitus. No history of vertigo. No history of recurrent ear infections. NOSE: No history of hay fever. No history of nosebleeds. MOUTH: No history of altered taste sensation. No ulcers in the mouth. No bleeding from the gums. THROAT: Denies any odynophagia or dysphagia. No history of recurrent sore throats. SKIN: No yellowish discoloration to the skin. No psoriasis. No history of skin cancer. NECK: Denies any neck pain. No history of swelling in the neck. No goiter. LUNGS: Denies any history of wheezing, cough, or sputum production. No history of asthma. COPD by exam, although he denies it. He is not on any treatment for that. He has no history of pulmonary embolism, no history of hemoptysis, no history of pleuritic chest pain, no history of sleep apnea. CARDIAC: A history of hypertension present. No history of congestive heart failure. No history of RI or anginal symptoms. No history of PND, orthopnea, or leg edema. RENAL: Denies any history of chronic kidney disease. GENITOURINARY: He has symptoms of an enlarged prostate which is controlled with medication. No symptoms of UTI. No history of hematuria, pyuria, or dysuria. MUSCULOSKELETAL: Denies arthritis or collagen vascular disease. GASTROINTESTINAL: No history of GI bleed. No history of fatty food intolerance. No history of altered bowel movements. No abdominal pain. No history of cirrhosis. No history of jaundice. ENDOCRINE: History of diabetes mellitus type 2, non-insulin dependent without any complications. No history of thyroid disease. No history of polydipsia or polyuria. No history of heat or cold intolerance. CENTRAL NERVOUS SYSTEM: No history of TIA or CVA. No history of headaches, migraines, or seizures. PSYCHIATRIC: No history of anxiety or depression. The patient appears to be slightly confused. HEMATOLOGICAL: No history of bleeding diathesis. No history of clotting disorders. VASCULAR: Denies any calf claudication. No history of DVT. I am not sure how accurate the review of systems is because the patient at times tends to be confused. ALLERGIES: He has no known allergies. MEDICATIONS: He is on: 1. Tylenol 650 mg p.o. q.4 h. p.r.n. 2. Atenolol 50 mg p.o. q.12 h. 3. Cefazolin 1 gram IV q.6 h. 4. Colace 100 mg p.o. b.i.d. 5. Magnesium hydroxide 30 mL p.o. q.48 h. p.r.n. 6. Morphine sulfate 4 mg IV q.4 h. p.r.n. 7. Nicoderm 21 mg per 24 hours, 1 each topically daily. 8. Nitroglycerin 1 tablet sublingual q.5 minutes p.r.n. 9. Phenergan 12.5 mg p.o. q.8 h. PHYSICAL EXAMINATION: GENERAL: The patient is well built, appears to be chronically ill. VITAL SIGNS: He is afebrile with a temperature of 98.2 degrees Fahrenheit this morning. Pulse is 74 beats per minute. Blood pressure 128/64. Respirations are 16 per minute. O2 saturations are 98% on room air. HEAD: Atraumatic/normocephalic. EYES: Pupils are equal, round, regular, reactive to light and accommodation. Extraocular movements are normal. There is no conjunctival pallor. There is no scleral icterus. EARS: Tympanic membranes are intact. External auditory canals are clear. NOSE: There is no deviated nasal septum. There is no inflammation of the nasal mucous membranes. MOUTH: Mucous membranes of the mouth are moist. Tongue is moist. There is no ulcer. There is no bleeding from the gums. THROAT: There is no redness of the oropharynx. There are no exudates. SKIN: There are no skin rashes. There is no petechia or ecchymosis. There is no skin lesion. NECK: Supple. There is no JVD. Carotids are equal. There is no bruit. There is no lymphadenopathy. There is no goiter. Trachea is central. There are no accessory muscles on respiration used. LUNGS: Show diminished air entry, prolonged expiration, without any rales, rales, or wheezing. There is hyperresonance on percussion. HEART: S1, S2 is heard. There is no S3 gallop. There is no S4 gallop. There is a systolic murmur in the left sternal border and the apex. There is no rub. ABDOMEN: Soft, nontender. There is no hepatosplenomegaly. Bowel sounds are well heard. EXTREMITIES: There is foreshortening of the right lower extremity. There is some tenderness of the right hip. Femorals are slightly diminished. Leg pulses are slightly diminished. There is no femoral bruit. There is no pedal edema. There is no DVT or cellulitis. There is no calf tenderness. CENTRAL NERVOUS SYSTEM: The patient is conscious, without any focal deficits. PSYCHIATRIC: The patient is confused at times. The patient does not appear to be agitated. DIAGNOSTIC DATA: The patient's hip and pelvic x-ray on the 2nd shows right hip fracture. The patient's chest x-ray done on the 2nd shows no acute findings. The patient's EKG shows a sinus rhythm, borderline prolonged QT interval, no acute changes of ischemia. The patient's echocardiogram is not a very good study, probably no wall motion abnormality, probably normal LV size. No LVH. LV ejection fraction 60%. There is trace amount of tricuspid regurgitation. Right ventricular systolic pressure is 23 to 28 mmHg with a RA mean of 5 to 10. There is no evidence of mitral valve prolapse. There is no aortic valve stenosis, no aortic regurgitation present. There is no pericardial effusion. The patient's sodium is 138.5. On the 2nd, his potassium was 3.5, this has been replaced, and yesterday the potassium was 3.8 and today is 3.9. His chloride today is 103, CO2 is 28, the patient's BUN is 17, creatinine is 0.74, GFR is greater than 60. His glucose is 105, and his calcium is 8.4. Magnesium is 1.8. His troponin-I on the 2nd was less than 0.012. The patient's white count is 10,200, hemoglobin is 11.4, hematocrit is 34.3, platelet count is 204,000. The patient's ProTime is 15.7, INR is 1.17, PTT is 37.1. IMPRESSION: 1. Right hip fracture for surgery. 2. Hypertension, well controlled. 3. Diabetes mellitus type 2, blood sugar well controlled. 4. Enlarged prostate. 5. Confusion, question early dementia. 6. COPD by exam. 7. Pre-procedural cardiovascular examination. RECOMMENDATIONS: Echocardiogram discussed with the patient. The patient, as mentioned earlier, will continue on current medications. The patient will be an acceptable risk for the surgery under general or spinal anesthesia. This has been discussed with the patient and the other caregiving providers on the case and also with the anesthesiologist. Note the patient was seen at 8 o'clock today on formal consult, and the patient was seen briefly yesterday. Note, 40 minutes spent on this patient with more than 50% of the time spent on direct patient care and reviewing the patient's records. Also, this involved moderately complex medical decision making. Will recheck the patient in the morning, and if stable will sign off tomorrow. DICTATING PHYSICIAN: ALEKSANDAR CAIN M.D. [id number] PHY#: [id number] ID: [id number] JOB#: [id number] ACCT: [id number] cc:ALEKSANDAR CAIN M.D. > MTDD
[2016-08-27] MEDS: RIVAROXABAN 10 MG TABLET PO SCH (21:54)
[2016-08-28] MEDS: CEFAZOLIN 1 GM/D5W RTU 1 GM/50 ML RTUPB IV SCH ×4 (02:07→21:12)
[2016-08-28] MEDS: ATENOLOL 50 MG TABLET PO SCH ×2 (06:40→18:19)
[2016-08-28 07:02] LABS: HEMOGLOBIN 10.1 g/dL (13.5-17.0); HGB HCT DIFFERENCE 0.3; MEAN CORPUSCULAR HEMOGLOBIN 31.6 pg (27.0-33.4); MEAN CORPUSCULAR HGB CONC 33.7 g/dL (32.0-36.0); MEAN CORPUSCULAR VOLUME 94 fl (80-97); RED BLOOD COUNT 3.19 10^6/uL (4.35-5.55); RED CELL DISTRIBUTION WIDTH 13.8 % (11.5-14.0); WHITE BLOOD COUNT 14.2 10^3/uL (4.0-10.5)
[2016-08-28 07:16] LABS: ANION GAP 8 (5-19); BLOOD UREA NITROGEN 19 mg/dL (7-20); CALCIUM 8.5 mg/dL (8.4-10.2); CARBON DIOXIDE 29 mmol/L (22-30); CHLORIDE 103 mmol/L (98-107); CREATININE RESULT 0.72 mg/dL (0.52-1.25); GLUCOSE 133 mg/dL (75-110); POTASSIUM 4.2 mmol/L (3.6-5.0); SODIUM 139.8 mmol/L (137-145)
--- NOTE | 2016-08-28 09:01 | PDOC PROGRESS REPORT ---
Subjective Progress Note for:: 08/28/16 Subjective:: Patient without any complaints of discomfort this morning Physical Exam Vital Signs: Temp Pulse Resp BP Pulse Ox 36.4 C 72 19 130/64 H 99 08/28/16 08:00 08/28/16 08:00 08/28/16 08:00 08/28/16 08:00 08/28/16 08:00 Intake & Output 08/27/16 08/28/16 08/29/16 06:59 06:59 06:59 Intake Total 1263 3755 Output Total 700 585 Balance 563 3170 Weight 59.3 kg General appearance: PRESENT: no acute distress Head exam: PRESENT: normocephalic Respiratory exam: PRESENT: unlabored Cardiovascular exam: PRESENT: RRR Pulses: PRESENT: +1 pedal pulses bilateral Vascular exam: PRESENT: normal capillary refill GI/Abdominal exam: PRESENT: soft Rectal exam: PRESENT: deferred Musculoskeletal exam: PRESENT: other - Lower extremity dressings clean dry and intact. Leg length equal. Distal neurovascular examination is intact. Neurological exam: PRESENT: alert, awake, oriented to person, oriented to place Psychiatric exam: PRESENT: normal mood Skin exam: PRESENT: dry, intact, warm. ABSENT: cyanosis, rash Results Laboratory Results: 08/28/16 06:55 08/28/16 06:55 08/28/16 08/28/16 06:55 06:55 WBC 14.2 H RBC 3.19 L Hgb 10.1 L Hct 30.0 L MCV 94 MCH 31.6 MCHC 33.7 RDW 13.8 Plt Count 220 Sodium 139.8 Potassium 4.2 Chloride 103 Carbon Dioxide 29 Anion Gap 8 BUN 19 Creatinine 0.72 Est GFR ( Amer) > 60 Est GFR (Non-Af Amer) > 60 Glucose 133 H Calcium 8.5 Impressions: Hip/Pelvis X-Ray 08/25/16 00:00 IMPRESSION: Right hip fracture as above. Chest X-Ray 08/25/16 23:11 IMPRESSION: NO SIGNIFICANT RADIOGRAPHIC FINDING IN THE CHEST. Hip X-Ray 08/27/16 00:00 IMPRESSION: IMAGE(S) OBTAINED DURING PROCEDURE. Status: Imported from PACS Assessment & Plan - Diagnosis (1) Displaced fracture of right femoral neck Is this a current diagnosis for this admission?: YesPlan: Patient status post open reduction internal fixation of the right proximal femur fracture yesterday. He has not yet been out of bed. Plan will be for physical therapy for weightbearing as tolerated ambulation. If right knee instability interferes with the patient's ability to ambulate will apply a knee immobilizer temporarily while we await for the results of an MRI scan to evaluate the patella tendon. (2) Rupture of right patellar tendon Is this a current diagnosis for this admission?: Yes - Time Time Spent with patient: 15-24 minutes Anticipated discharge: SNF Within: Other
[2016-08-28] MEDS: DOCUSATE SODIUM 100 MG CAPSULE PO SCH ×2 (09:07→18:19)
[2016-08-28] MEDS: ACETAMINOPHEN 325 MG TABLET PO PRN (09:07)
--- NOTE | 2016-08-28 13:53 | PROGRESS NOTE E ---
Progress Note NAME: GEETHA NAVARRO : 1945 AGE: 71Y DATE: 08/28/2016 ROOM: 402 SUBJECTIVE: Note that the patient is slightly confused, but denies any chest pain or discomfort. He had his right hip surgery yesterday, which was uneventful. The patient denies any chest pain or discomfort. There is no shortness of breath. There is no PND or orthopnea. The patient's pain is well controlled as per the patient. There is no TIA or CVA symptoms. OBJECTIVE: GENERAL: On examination, the patient appears to be frail built and appears to be chronically ill. VITAL SIGNS: He is afebrile with a temperature of 97.6 degrees Fahrenheit, pulse of 712 beats per minute, blood pressure is 130/64, respirations of 19 per minute, O2 sats are 99% on room air. HEAD: Atraumatic, normocephalic. EYES: Pupils are equal, round, regular, and reactive to light and accommodation. Extraocular movements are normal. There is no conjunctival pallor. There is no sclerae icterus. EARS, NOSE, THROAT: Negative. NECK: Supple. There is no JVD. Carotids are equal. There are no bruits. There is no goiter. There is no lymphadenopathy. LUNGS: Diminished air entry. Prolonged expiration without any rhonchi, rales, or wheezing. There is hyperresonance on percussion. HEART: S1 and S2 are heard. There is no S3 gallop. There is no S4 gallop. There is a systolic murmur in the left sternal border and the apex. There is no rub. ABDOMEN: Soft and nontender. There is no hepatosplenomegaly. Bowel sounds are well heard. EXTREMITIES: There is a dressing on the right hip, which is dry. The femorals are slightly diminished. There are no femoral bruits. Leg pulses are diminished. There is no pedal edema. There is no DVT or cellulitis. There is no cyanosis or clubbing. There is no calf tenderness. CENTRAL NERVOUS SYSTEM: The patient is conscious, confused, without any focal deficits. PSYCHIATRIC: The patient does not appear to be agitated or anxious. His judgment and insight could not be tested due the patient's confusion. DIAGNOSTIC DATA: The patient's white count is 14,200; his hemoglobin is 10.1; hematocrit is 30; and his platelet count is 220,000. The patient's sodium is 139.8, potassium is 4.2, chloride is 103, CO2 is 29. The patient's BUN is 19, creatinine is 0.72, GFR is greater than 60, glucose is 133, calcium is 8.5. IMPRESSION: 1. STATUS POST RIGHT HIP FRACTURE SURGERY. PATIENT IS STABLE POST SURGERY. 2. HYPERTENSION. WELL CONTROLLED. 3. DIABETES MELLITUS TYPE 2. 4. ENLARGED PROSTATE. 5. CONFUSION. QUESTION EARLY DEMENTIA. 6. COPD BY EXAM. RECOMMENDATIONS: The patient is stable. Note, 20 minutes were spent on this patient with more than 50% of the time spent in direct patient care. His medications have been reviewed. I will sign off the case. Continue his current medications. I discussed with the other caregiving providers on the case. Note that this is low complexity medical decision making in view of the patient being stable. Note that the patient is a DNR and his son is his surrogate healthcare decision maker. DICTATING PHYSICIAN: ALEKSANDAR CAIN M.D. [id number] RUTHANNY#: [id number] ID: [id number] JOB#: [id number] ACCT: [id number] cc: >
--- NOTE | 2016-08-28 13:57 | PDOC PROGRESS REPORT ---
Subjective Progress Note for:: 08/28/16 Subjective:: Patient is seen on morning rounds. He is in bed eating his breakfast. He denies any shortness of breath or chest pain. He complains of pain at right hip incision. He remains confused x 3 .He denies any abdominal pain, nausea or vomiting. No family is presently available. Rest of review of systems is negative Physical Exam Vital Signs: Temp Pulse Resp BP Pulse Ox 98.7 F 82 18 118/49 L 97 08/28/16 11:37 08/28/16 11:37 08/28/16 11:37 08/28/16 11:37 08/28/16 11:37 Intake & Output 08/27/16 08/28/16 08/29/16 06:59 06:59 06:59 Intake Total 1263 3755 Output Total 700 585 Balance 563 3170 Weight 59.3 kg General appearance: PRESENT: no acute distress, disheveled, thin, well-developed Head exam: PRESENT: atraumatic, normocephalic Eye exam: PRESENT: conjunctiva pale Ear exam: PRESENT: normal external ear exam Mouth exam: PRESENT: moist, neck supple, tongue midline Teeth exam: PRESENT: edentulous Neck exam: PRESENT: full ROM Respiratory exam: PRESENT: clear to auscultation nickie. ABSENT: rales, rhonchi, wheezes Cardiovascular exam: PRESENT: RRR. ABSENT: diastolic murmur, rubs, systolic murmur Pulses: PRESENT: normal dorsalis pedis pul Vascular exam: PRESENT: normal capillary refill GI/Abdominal exam: PRESENT: normal bowel sounds, soft. ABSENT: distended, guarding, mass, organolmegaly, rebound, tenderness Rectal exam: PRESENT: deferred Neurological exam: PRESENT: alert, altered, awake, CN II-XII grossly intact Psychiatric exam: PRESENT: flat affect Skin exam: PRESENT: dry, intact, warm. ABSENT: cyanosis, rash Results Laboratory Results: 08/28/16 06:55 08/28/16 06:55 08/28/16 08/28/16 06:55 06:55 WBC 14.2 H RBC 3.19 L Hgb 10.1 L Hct 30.0 L MCV 94 MCH 31.6 MCHC 33.7 RDW 13.8 Plt Count 220 Sodium 139.8 Potassium 4.2 Chloride 103 Carbon Dioxide 29 Anion Gap 8 BUN 19 Creatinine 0.72 Est GFR ( Amer) > 60 Est GFR (Non-Af Amer) > 60 Glucose 133 H Calcium 8.5 Impressions: Hip/Pelvis X-Ray 08/25/16 00:00 IMPRESSION: Right hip fracture as above. Chest X-Ray 08/25/16 23:11 IMPRESSION: NO SIGNIFICANT RADIOGRAPHIC FINDING IN THE CHEST. Hip X-Ray 08/27/16 00:00 IMPRESSION: IMAGE(S) OBTAINED DURING PROCEDURE. Assessment & Plan - Diagnosis (1) Displaced fracture of right femoral neck Is this a current diagnosis for this admission?: YesPlan: Patient was taken to the OR today by orthopedic surgery (2) DNR (do not resuscitate) Is this a current diagnosis for this admission?: YesPlan: Patient's son is his TRE (3) Emphysema Qualifiers: Emphysema type: unspecified Qualified Code(s): J43.9 - Emphysema, unspecified Is this a current diagnosis for this admission?: YesPlan: Continue aggressive pulmonary toilet and prn nebulizer treatments (4) Hypertension Qualifiers: Hypertension type: essential hypertension Qualified Code(s): I10 - Essential (primary) hypertension Is this a current diagnosis for this admission?: YesPlan: Presently normotensive on current medications (5) Tobacco abuse Is this a current diagnosis for this admission?: YesPlan: Counseled (6) Confusion Is this a current diagnosis for this admission?: YesPlan: Baseline, secondary to vascular dementia - Time Time Spent with patient: 25-34 minutes Critical Time spent with patient: 15-24 minutes Medications reviewed and adjusted accordingly: Yes Anticipated discharge: Acute Rehab Within: when bed available
[2016-08-28] MEDS ORDERED: LORAZEPAM INJ 2 MG/1 ML VIAL ONE (21:06)
[2016-08-28] MEDS: MORPHINE SULFATE 10 MG/ML INJ IV PRN (21:13)
[2016-08-28] MEDS ORDERED: LORAZEPAM INJ 2 MG/1 ML VIAL IV ONE (21:30)
[2016-08-28] MEDS: RIVAROXABAN 10 MG TABLET PO SCH (21:37)
[2016-08-29] MEDS: CEFAZOLIN 1 GM/D5W RTU 1 GM/50 ML RTUPB IV SCH ×4 (03:35→20:48)
[2016-08-29 07:01] LABS: HEMATOCRIT 28.3 % (37.9-51.0); HEMOGLOBIN 9.6 g/dL (13.5-17.0); HGB HCT DIFFERENCE 0.5; MEAN CORPUSCULAR HEMOGLOBIN 31.9 pg (27.0-33.4); MEAN CORPUSCULAR HGB CONC 33.8 g/dL (32.0-36.0); MEAN CORPUSCULAR VOLUME 94 fl (80-97); RED CELL DISTRIBUTION WIDTH 14.1 % (11.5-14.0); WHITE BLOOD COUNT 10.7 10^3/uL (4.0-10.5)
--- NOTE | 2016-08-29 07:12 | PDOC PROGRESS REPORT ---
Subjective Progress Note for:: 08/29/16 Subjective:: Patient continues to be confused Physical Exam Vital Signs: Temp Pulse Resp BP Pulse Ox 36.4 C 79 17 132/59 H 84 L 08/29/16 04:08 08/29/16 04:08 08/29/16 04:08 08/29/16 04:08 08/29/16 04:08 Intake & Output 08/28/16 08/29/16 08/30/16 06:59 06:59 06:59 Intake Total 3755 1230 Output Total 585 300 Balance 3170 930 General appearance: PRESENT: no acute distress Head exam: PRESENT: normocephalic Respiratory exam: PRESENT: unlabored Cardiovascular exam: PRESENT: RRR Pulses: PRESENT: +1 pedal pulses bilateral Vascular exam: PRESENT: normal capillary refill GI/Abdominal exam: PRESENT: soft Musculoskeletal exam: PRESENT: other - Right lower extremity dressings clean dry and intact. Leg lengths are equal. Distal neurovascular examination is intact. Results Laboratory Results: 08/29/16 06:40 08/28/16 06:55 08/28/16 08/29/16 06:55 06:40 WBC 10.7 H RBC 3.00 L Hgb 9.6 L Hct 28.3 L MCV 94 MCH 31.9 MCHC 33.8 RDW 14.1 H Plt Count 240 Sodium 139.8 Potassium 4.2 Chloride 103 Carbon Dioxide 29 Anion Gap 8 BUN 19 Creatinine 0.72 Est GFR ( Amer) > 60 Est GFR (Non-Af Amer) > 60 Glucose 133 H Calcium 8.5 Impressions: Hip/Pelvis X-Ray 08/25/16 00:00 IMPRESSION: Right hip fracture as above. Chest X-Ray 08/25/16 23:11 IMPRESSION: NO SIGNIFICANT RADIOGRAPHIC FINDING IN THE CHEST. Hip X-Ray 08/27/16 00:00 IMPRESSION: IMAGE(S) OBTAINED DURING PROCEDURE. Status: Imported from PACS Assessment & Plan - Diagnosis (1) Displaced fracture of right femoral neck Is this a current diagnosis for this admission?: YesPlan: Making progress with physical therapy. Anticipate the need for shelter facility placement. (2) Rupture of right patellar tendon Is this a current diagnosis for this admission?: YesPlan: at This point if there is a patellar tendon disruption at that does not seem to interfere with the patient's ability to ambulate - Time Time Spent with patient: 15-24 minutes Anticipated discharge: SNF Within: when bed available
[2016-08-29] MEDS: ATENOLOL 50 MG TABLET PO SCH ×2 (08:01→17:31)
[2016-08-29] MEDS: DOCUSATE SODIUM 100 MG CAPSULE PO SCH ×2 (10:11→17:31)
[2016-08-29] MEDS: ACETAMINOPHEN 325 MG TABLET PO PRN (10:13)
--- NOTE | 2016-08-29 13:23 | PDOC PROGRESS REPORT ---
Subjective Progress Note for:: 08/29/16 Subjective:: Patient is seen on morning rounds. He is in bed eating his breakfast. He denies any shortness of breath or chest pain. He complains of pain at right hip incision. He remains confused x 2 .He denies any abdominal pain, nausea or vomiting. No family is presently available. Rest of review of systems is negative Physical Exam Vital Signs: Temp Pulse Resp BP Pulse Ox 97.7 F 75 16 109/50 L 97 08/29/16 11:54 08/29/16 11:54 08/29/16 11:54 08/29/16 11:54 08/29/16 11:54 Intake & Output 08/28/16 08/29/16 08/30/16 06:59 06:59 06:59 Intake Total 3755 1230 120 Output Total 585 300 Balance 3170 930 120 General appearance: PRESENT: no acute distress, thin, well-developed Head exam: PRESENT: atraumatic, normocephalic Eye exam: PRESENT: conjunctiva pink, EOMI, PERRLA. ABSENT: scleral icterus Ear exam: PRESENT: normal external ear exam Mouth exam: PRESENT: moist, neck supple, tongue midline Neck exam: ABSENT: carotid bruit, JVD, lymphadenopathy, thyromegaly Respiratory exam: PRESENT: clear to auscultation nickie. ABSENT: rales, rhonchi, wheezes Cardiovascular exam: PRESENT: RRR. ABSENT: diastolic murmur, rubs, systolic murmur Pulses: PRESENT: normal dorsalis pedis pul Vascular exam: PRESENT: normal capillary refill GI/Abdominal exam: PRESENT: normal bowel sounds, soft. ABSENT: distended, guarding, mass, organolmegaly, rebound, tenderness Rectal exam: PRESENT: deferred Extremities exam: PRESENT: full ROM. ABSENT: calf tenderness, clubbing, pedal edema Neurological exam: PRESENT: alert, altered, oriented to person, CN II-XII grossly intact, normal gait Psychiatric exam: PRESENT: appropriate affect, normal mood. ABSENT: homicidal ideation, suicidal ideation Skin exam: PRESENT: dry, intact, warm, other - right leg incision dressing dry and intact. ABSENT: cyanosis, rash Results Laboratory Results: 08/29/16 06:40 08/28/16 06:55 08/29/16 06:40 WBC 10.7 H RBC 3.00 L Hgb 9.6 L Hct 28.3 L MCV 94 MCH 31.9 MCHC 33.8 RDW 14.1 H Plt Count 240 Impressions: Hip/Pelvis X-Ray 08/25/16 00:00 IMPRESSION: Right hip fracture as above. Chest X-Ray 08/25/16 23:11 IMPRESSION: NO SIGNIFICANT RADIOGRAPHIC FINDING IN THE CHEST. Hip X-Ray 08/27/16 00:00 IMPRESSION: IMAGE(S) OBTAINED DURING PROCEDURE. Assessment & Plan - Diagnosis (1) Displaced fracture of right femoral neck Is this a current diagnosis for this admission?: YesPlan: Patient is POD #2, from right hip nailing. He is progressing with physical therapy. He has a bed offer from [facility] for rehab (2) DNR (do not resuscitate) Is this a current diagnosis for this admission?: YesPlan: Patient's son is his MPOA (3) Emphysema Qualifiers: Emphysema type: unspecified Qualified Code(s): J43.9 - Emphysema, unspecified Is this a current diagnosis for this admission?: YesPlan: Continue aggressive pulmonary toilet and prn nebulizer treatments (4) Hypertension Qualifiers: Hypertension type: essential hypertension Qualified Code(s): I10 - Essential (primary) hypertension Is this a current diagnosis for this admission?: YesPlan: Presently normotensive on current medications (5) Tobacco abuse Is this a current diagnosis for this admission?: YesPlan: Counseled (6) Confusion Is this a current diagnosis for this admission?: YesPlan: Baseline, secondary to vascular dementia - Time Time Spent with patient: 25-34 minutes Critical Time spent with patient: 15-24 minutes Medications reviewed and adjusted accordingly: Yes Anticipated discharge: Acute Rehab Within: when bed available
[2016-08-29] MEDS: MORPHINE SULFATE 10 MG/ML INJ IV PRN (19:14)
[2016-08-29] MEDS ORDERED: ARIPIPRAZOLE 5 MG TABLET PO ONE (20:18)
[2016-08-29] MEDS ORDERED: LORAZEPAM INJ 2 MG/1 ML VIAL ONE (20:21)
[2016-08-29] MEDS: RIVAROXABAN 10 MG TABLET PO SCH (20:53)
[2016-08-29] MEDS ORDERED: LORAZEPAM INJ 2 MG/1 ML VIAL IV ONE (22:45)
[2016-08-30] MEDS: CEFAZOLIN 1 GM/D5W RTU 1 GM/50 ML RTUPB IV SCH ×2 (03:04→08:32)
[2016-08-30] MEDS: MORPHINE SULFATE 10 MG/ML INJ IV PRN (04:49)
[2016-08-30] MEDS: ATENOLOL 50 MG TABLET PO SCH (04:50)
[2016-08-30 04:53] LABS: HEMATOCRIT 29.7 % (37.9-51.0); HEMOGLOBIN 9.8 g/dL (13.5-17.0); HGB HCT DIFFERENCE -0.3; MEAN CORPUSCULAR HEMOGLOBIN 31.8 pg (27.0-33.4); MEAN CORPUSCULAR HGB CONC 33.1 g/dL (32.0-36.0); MEAN CORPUSCULAR VOLUME 96 fl (80-97); RED BLOOD COUNT 3.09 10^6/uL (4.35-5.55); RED CELL DISTRIBUTION WIDTH 13.9 % (11.5-14.0); WHITE BLOOD COUNT 9.1 10^3/uL (4.0-10.5)
[2016-08-30 08:44] VITALS: BP 148/76
[2016-08-30] MEDS ORDERED: SELENIUM SULFIDE TP PRN (09:57)
[2016-08-30] MEDS ORDERED: RISPERIDONE 0.25 MG TABLET PO SCH (10:00)
--- NOTE | 2016-08-30 10:05 | PDOC TRANSFER SUMMARY ---
General - Admit/Disc Date/PCP Admission Date/Primary Care Provider: 08/26/16 02:51 Discharge Date: 08/30/16 - Discharge Diagnosis (1) Displaced fracture of right femoral neck Is this a current diagnosis for this admission?: YesSummary: Patient is POD #3 after right hip pinning by Dr Romero. He has been ambulating with PT. Will continue PT at SNF (2) Emphysema Is this a current diagnosis for this admission?: YesSummary: Patient has been doing incentive spirometry. Room air SPO2 has remained greater than 90% (3) Confusion Is this a current diagnosis for this admission?: YesSummary: Patient with vascular dementia, worse in the evening. Started on low dose risperdal (4) Hypertension Is this a current diagnosis for this admission?: YesSummary: Presently normotensive on current medication (5) Tobacco abuse Is this a current diagnosis for this admission?: YesSummary: Nicotine transdermal patch daily (6) DNR (do not resuscitate) Is this a current diagnosis for this admission?: YesSummary: Patient's son is his MPOA - Additional Information Resuscitation Status: Do Not Resuscitate Discharge Diet: Diabetic Discharge Activity: Activity As Tolerated, Balance Activity w/Rest Home Medications: Metformin HCl [Glucophage 500 mg Tablet] 500 mg PO BID 09/07/11 Ciprofloxacin HCl [Cipro 500 mg Tablet] 500 mg PO BID #20 tablet 09/29/13 Tamsulosin HCl [Flomax 0.4 mg Cap.sr] 0.4 mg PO DAILY #7 cap.sr.24h 09/29/13 Atenolol [Tenormin 50 mg Tablet] 50 mg PO Q12 08/26/16 Clobetasol Propionate [Temovate 0.05% Cream 15 gm] 1 applic TP BID 08/26/16 Nitroglycerin [Nitrostat 0.4 mg (1/150 Gr) Tabs 25/Bottle] 1 tab SL Q5MP PRN 05/10 Selenium Sulfide 1 applic TP ASDIR PRN 08/26/16 Acetaminophen [Tylenol 325 mg Tablet] 650 mg PO Q4HP PRN tablet 08/30/16 Docusate Sodium [Colace 100 mg Capsule] 100 mg PO BID capsule 08/30/16 Hydrocodone/Acetaminophen [[place] 5-325 mg Tablet] 1 tab PO Q4HP PRN #20 tablet 08/30/16 Magnesium Hydroxide [Milk of Magnesia 30 ml Udcup] 30 ml PO Q48HP PRN udc 08/30 Nicotine [Nicoderm 21 mg/24 Hr Transderm Patch] 1 each TD DAILYP PRN patch.td24 08/30/16 Rivaroxaban [Xarelto 10 mg Tablet] 10 mg PO QHS tablet 08/30/16 History of Present Illness Admission Date/PCP: 08/26/16 02:51 Patient complains of: Right hip pain History of Present Illness: GEETHA NAVARRO is a 71 year old male with underlying hypertension, nephrolithiasis, psoriasis, partial hearing loss who presents to the emergency room for evaluation of above complaint. Patient has been discussed with emergency room physician who evaluated the patient. Patient is globally disoriented and is able to provide no history whatsoever in terms of acute or chronic events, review of systems, personal habits, family history, etc. No friends or family are present. Old inpatient records are reviewed. Patient did tell the emergency room doctor earlier that he did not pass out and did not strike his head. Denied any other injuries. He was actually seen in the emergency room on the first after suffering a fall and twisting his right knee, with x-ray showing evidence of probably an occult fracture. Was placed in a knee immobilizer that time, and is actually scheduled to see Dr. dumas in his office on the third. However, the afternoon of the second, as he was attempting to get up from his couch and manage his knee immobilizer and crutches, he fell onto his right hip. Could no longer stand due to the pain. X-rays revealed a right hip fracture. Orthopedics is aware and has agreed to manage this fracture. Denies nausea vomiting, fever chills, diarrhea or dysuria. No chest or abdominal pain. Hospital Course Hospital Course: Patient was admitted to hospitalist service on telemetry. Dr Chavez saw the patient from cardiology for clearance for surgery. Dr Romero saw the patient from orthopedics. He was taken to the OR for ORIF of right hip by Dr Romero. He had physical therapy post operatively and ambulated well with then. He has history of vascular dementia, worse in the evening. He was started on risperdal for confusion. His vitals were stable post operatively. Social work was consulted for discharge planning. He has been given a bed offer for short term rehab from [place]. He will be transferred later today to [place] for continued rehab Physical Exam Vital Signs: Temp Pulse Resp BP Pulse Ox 97.3 F 75 19 148/76 H 94 08/30/16 07:56 08/30/16 07:56 08/30/16 03:51 08/30/16 07:56 08/30/16 03:51 Intake & Output 08/29/16 08/30/16 08/31/16 06:59 06:59 06:59 Intake Total 1230 535 Output Total 300 650 Balance 930 -115 Weight 69 kg General appearance: PRESENT: no acute distress, disheveled, thin, well-developed Head exam: PRESENT: atraumatic Eye exam: PRESENT: conjunctiva pink, EOMI, PERRLA. ABSENT: scleral icterus Ear exam: PRESENT: normal external ear exam Mouth exam: PRESENT: moist, tongue midline Teeth exam: PRESENT: edentulous Neck exam: ABSENT: carotid bruit, JVD, lymphadenopathy, thyromegaly Respiratory exam: PRESENT: clear to auscultation nickie. ABSENT: rales, rhonchi, wheezes Cardiovascular exam: PRESENT: RRR. ABSENT: diastolic murmur, rubs, systolic murmur Pulses: PRESENT: normal dorsalis pedis pul Vascular exam: PRESENT: normal capillary refill GI/Abdominal exam: PRESENT: normal bowel sounds, soft. ABSENT: distended, guarding, mass, organolmegaly, rebound, tenderness Rectal exam: PRESENT: deferred Extremities exam: PRESENT: full ROM, tenderness, other - right hip incision Musculoskeletal exam: PRESENT: ambulatory, full ROM, normal inspection, tenderness Neurological exam: PRESENT: alert, altered, oriented to person, CN II-XII grossly intact Psychiatric exam: PRESENT: flat affect Skin exam: PRESENT: dry, intact, warm, other - right hip incision dressing dry and intact. ABSENT: cyanosis, rash Results Laboratory Results: 08/30/16 03:59 08/28/16 06:55 08/30/16 03:59 WBC 9.1 RBC 3.09 L Hgb 9.8 L Hct 29.7 L MCV 96 MCH 31.8 MCHC 33.1 RDW 13.9 Plt Count 259 Impressions: Hip/Pelvis X-Ray 08/25/16 00:00 IMPRESSION: Right hip fracture as above. Chest X-Ray 08/25/16 23:11 IMPRESSION: NO SIGNIFICANT RADIOGRAPHIC FINDING IN THE CHEST. Hip X-Ray 08/27/16 00:00 IMPRESSION: IMAGE(S) OBTAINED DURING PROCEDURE. Transfer Plan - Disposition Transfer Plan: Transfer to [facility] facility - Time Spent with Patient Time spent with patient: Less than 30 Minutes Qualifiers PATEINT BEING DISCHARGED WITH ANY OF THE FOLLOWING DIAGNOSIS?: No Plan [facility] Time Spent: Less than 30 Minutes
[2016-08-30] MEDS: DOCUSATE SODIUM 100 MG CAPSULE PO SCH (10:48)
[2016-08-30] MEDS ORDERED: CLOBETASOL PROPIONATE 0.05% CREAM 15 GM TP ONE (11:00)
--- NOTE | 2016-08-30 13:47 | PDOC PROGRESS REPORT ---
Subjective Progress Note for:: 08/30/16 Subjective:: Patient sitting in bed comfortable. Denies any issues. Was able to walk 20 feet with a walker yesterday. No issues overnight. Physical Exam Vital Signs: Temp Pulse Resp BP Pulse Ox 97.3 F 75 19 148/76 H 94 08/30/16 07:56 08/30/16 07:56 08/30/16 03:51 08/30/16 07:56 08/30/16 03:51 Intake & Output 08/29/16 08/30/16 08/31/16 06:59 06:59 06:59 Intake Total 1230 535 120 Output Total 300 650 Balance 930 -115 120 Weight 69 kg Musculoskeletal exam: PRESENT: other - Right lower extremity: Dressing clean/dry /intact. No evidence of limb length inequality or malrotation. Effusion of the right knee continues to demonstrate improvement but patient lacks active extension. No calf tenderness. Results Laboratory Results: 08/30/16 03:59 08/28/16 06:55 08/30/16 03:59 WBC 9.1 RBC 3.09 L Hgb 9.8 L Hct 29.7 L MCV 96 MCH 31.8 MCHC 33.1 RDW 13.9 Plt Count 259 Impressions: Hip/Pelvis X-Ray 08/25/16 00:00 IMPRESSION: Right hip fracture as above. Chest X-Ray 08/25/16 23:11 IMPRESSION: NO SIGNIFICANT RADIOGRAPHIC FINDING IN THE CHEST. Hip X-Ray 08/27/16 00:00 IMPRESSION: IMAGE(S) OBTAINED DURING PROCEDURE. Assessment & Plan - Diagnosis (1) Intertrochanteric fracture of right hip Qualifiers: Encounter type: initial encounter Fracture type: closed Fracture alignment: nondisplaced Qualified Code(s): S72.144A - Nondisplaced intertrochanteric fracture of right femur, initial encounter for closed fracture Is this a current diagnosis for this admission?: YesPlan: Status post right cephalo-medullary nail intertrochanteric fracture #1 weightbearing as tolerated #2 Xarelto for DVT prophylaxis #3 we will continue to monitor patient's right knee and fusion MRI will be ordered if it continues to cause him discomfort. #4 [facility] facility.
[2016-08-30] MEDS ORDERED: CLOBETASOL PROPIONATE 0.05% CREAM 15 GM TP SCH (18:00)
== END 2016-08-30 16:33 | DRG 480 ==
LOC: ER 20:53 → UNDOADMIN 08-26 00:12 → EH 08-26 00:12 → 4N 08-26 03:53
PROVIDERS: ADMIT Family Medicine; ATTEND Family Medicine
PROC: 0QS606Z Reposition Right Upper Femur with Intramedullary Internal Fixation Device, Open Approach (ICD-10-PCS; principal; 2016-08-27 08:00)
DX: M25.551 Pain in right hip (principal); S72.141A Displaced intertrochanteric fracture of right femur, initial encounter for closed fracture; S89.91XA Unspecified injury of right lower leg, initial encounter; W19.XXXA Unspecified fall, initial encounter; Y93.9 Activity, unspecified; Y92.9 Unspecified place or not applicable; Y99.9 Unspecified external cause status; E87.6 Hypokalemia; F01.50 Vascular dementia, unspecified severity, without behavioral disturbance, psychotic disturbance, mood disturbance, and anxiety; I10 Essential (primary) hypertension; H91.90 Unspecified hearing loss, unspecified ear; E11.9 Type 2 diabetes mellitus without complications; Z87.442 Personal history of urinary calculi; Z79.899 Other long term (current) drug therapy; Z79.84 Long term (current) use of oral hypoglycemic drugs; F17.210 Nicotine dependence, cigarettes, uncomplicated; Z66 Do not resuscitate
CPT/HCPCS: 01230; 36415; 71020; 80048; 80053; 81001; 83735; 84132; 84484; 85025; 85027; 85610; 85730; 87086; 93005; 93010; 93306; 94799; 99285; G8978-GP; G8979-GP; G8987-GO; G8988-GO; J0690; J1100; J2060; J2250; J2270; J2405; J2704; J3490; J7030; J7120

== ENCOUNTER 2016-08-31 15:01 | Emergency (ER) | payer OTHER, MEDICARE ==
--- NOTE | 2016-08-31 15:26 | ER Document Report ---
ED General - General Mode of Arrival: Ambulatory Information source: Patient, Emergency Med Personnel TRAVEL OUTSIDE OF THE [place] IN LAST 30 DAYS: No - HPI Onset: This afternoon - Refer to HPI notes <CRICKET DURON - Last Filed: 08/31/16 16:10> <DEE CARNEY - Last Filed: 08/31/16 23:13> - General Chief Complaint: Altered Mental Status Stated Complaint: PSYCH EVAL Time Seen by Provider: 08/31/16 15:10 Notes: Patient is a 71-year old male presenting to the emergency department for confusion and right hip pain. Patient fell on 08/24/2016 and injured his right knee. Patient was evaluated in this facility and was suspected of an injured tendon; his knee was immobilized and he was scheduled to follow up with Dr. Collazo. Patient fell again on 08/25/2016 and landed on his right hip. Patient was admitted on 08/25/2016 and had right hip surgery on 08/27/2016. Patient was discharged and transferred to [facility] on 08/30/2016. Patient was brought in today by EMS from [facility] for being combative and hitting the staff. Patient is confused here in the emergency department and also complains of some right hip pain. Dr. Garcia who treated the patient on 08/24/2016 saw the patient today and stated that he is altered compared to his visit on 08/24/2016. Patient has no known drug allergies. (CRICKET DURON) - Related Data Allergies/Adverse Reactions: No Known Allergies Allergy (Verified 08/31/16 15:18) Past Medical History - General Information source: Patient, [facility] Records - Social History Smoking Status: Former Smoker Chew tobacco use (# tins/day): No Frequency of alcohol use: None Drug Abuse: None Family History: CAD - Dad had VT at age 54. - Past Medical History Cardiac Medical History: Reports: Hx Hypertension Endocrine Medical History: Reports: Hx Diabetes Mellitus Type 2 Renal/ Medical History: Reports: Hx Kidney Stones Past Surgical History: Reports: Hx Kidney (Renal Surgery) - kidney stones, Hx Orthopedic Surgery - right knee ligament surgery, right hip fracture repair - Immunizations Hx Diphtheria, Pertussis, Tetanus Vaccination: No Hx Pneumococcal Vaccination: 02/24/11 <CRICKET DURON - Last Filed: 08/31/16 16:10> Review of Systems - Review of Systems Constitutional: No symptoms reported EENT: No symptoms reported Cardiovascular: No symptoms reported Respiratory: No symptoms reported Gastrointestinal: No symptoms reported Genitourinary: No symptoms reported Male Genitourinary: No symptoms reported Musculoskeletal: See HPI Skin: No symptoms reported Hematologic/Lymphatic: No symptoms reported Neurological/Psychological: See HPI, Confusion -: Yes All other systems reviewed and negative <CRICKET DURON - Last Filed: 08/31/16 16:10> Physical Exam <CRICKET DURON - Last Filed: 08/31/16 16:10> <DEE CARNEY - Last Filed: 08/31/16 23:13> - Vital signs Vitals: Resp 18 08/31/16 15:10 - Notes Notes: GENERAL: Confused. Mild distress. HEAD: Normocephalic, atraumatic. EYES: Appear normal. Pupils equal, round, and reactive to light. ENT: Dry mucus membranes, tongue midline. NECK: Full range of motion. Supple. Trachea midline. LUNGS: Clear to auscultation bilaterally, no wheezes, rales, or rhonchi. No respiratory distress. HEART: Regular rate and rhythm. No murmurs, gallops, or rubs. ABDOMEN: Soft, non-tender. Non-distended. Normal bowel sounds. EXTREMITIES: Immobilizer to the right knee. Tenderness to palpation over the right hip. NEUROLOGICAL: Confused. Normal speech. No focal neurological deficits. PSYCH: Uncooperative. SKIN: Warm, dry, normal turgor. Healing abrasions to the left upper extremity. (CRICKET DURON) Course - Laboratory Result Diagrams: 08/31/16 15:55 08/31/16 15:55 <CRICKET DURON - Last Filed: 08/31/16 16:10> - Laboratory Result Diagrams: 08/31/16 15:55 08/31/16 15:55 - Diagnostic Test Radiology reviewed: Reports reviewed <DEE CARNEY - Last Filed: 08/31/16 23:13> - Re-evaluation Re-evalutation: 08/31/16 22:22 Patient with no acute findings on blood work or imaging. Patient initially was cooperative and then became agitated, taking off his knee brace and throwing urinal in the room. Patient was given a dose of Haldol and has been cooperative and calm since that time. It did not make him drowsy. Patient is eating and drinking without difficulty. Discussed with son. Son is concerned that the patient has underlying dementia. Reviewed the patient's old records and it was a diagnosis while he was admitted to the hospital. Patient's son states that he needs us to go back to the [place] with. Patient will be discharged Back to his facility with Haldol twice a day as needed for agitation. No evidence for infection or any other acute disease process today. (DEE CARNEY) - Vital Signs Vital signs: Temp Pulse Resp BP Pulse Ox 97.9 F 115 H 12 159/84 H 99 08/31/16 15:14 08/31/16 15:14 08/31/16 15:14 08/31/16 15:14 08/31/16 15:14 - Laboratory Laboratory results interpreted by me: 08/31/16 08/31/16 08/31/16 15:55 15:55 15:55 WBC 11.3 H RBC 3.67 L Hgb 11.6 L Hct 35.1 L RDW 14.2 H Absolute Neutrophils 8.6 H PT 15.7 H APTT 38.3 H Carbon Dioxide 31 H BUN 25 H Urine Protein Urine Glucose (UA) Urine Ketones Ur Leukocyte Esterase 08/31/16 21:20 WBC RBC Hgb Hct RDW Absolute Neutrophils PT APTT Carbon Dioxide BUN Urine Protein 30 H Urine Glucose (UA) 50 H Urine Ketones 20 H Ur Leukocyte Esterase TRACE H Discharge <CRICKET DURON - Last Filed: 08/31/16 16:10> <DEE CARNEY - Last Filed: 08/31/16 23:13> - Discharge Clinical Impression: Agitation Dementia Qualifiers: Dementia type: unspecified type Dementia behavioral disturbance: with behavioral disturbance Qualified Code(s): F03.91 - Unspecified dementia with behavioral disturbance Condition: Stable Disposition: HOME-SNF (ED ONLY) Instructions: Dementia ([facility]) Prescriptions: Haloperidol [Haldol 1 Mg Tablet] 1 mg PO BIDP PRN #30 tablet PRN Reason: Scribe Attestation: 08/31/16 23:13 I personally performed the services described in the documentation, reviewed and edited the documentation which was dictated to the scribe in my presence, and it accurately records my words and actions. (DEE CARNEY) Scribe Documentation - Scribe Written by Scribe:: Radha Stark, 08/31/2016 16:16 acting as scribe for :: Latoya <CRICKET DURON - Last Filed: 08/31/16 16:10>
[2016-08-31] MEDS ORDERED: HALOPERIDOL LACTATE INJ 5 MG/1 ML VIAL IM ONE (15:47)
[2016-08-31 16:08] LABS: ABSOLUTE BASOPHILS # (AUTO) 0.1 10^3/uL (0.0-0.2); ABSOLUTE EOSINOPHILS # (AUTO) 0.1 10^3/uL (0.0-0.6); ABSOLUTE LYMPHOCYTES (AUTO) 1.5 10^3/uL (0.5-4.7); ABSOLUTE MONOCYTES (AUTO) 1.1 10^3/uL (0.1-1.4); ABSOLUTE NEUT (AUTO) 8.6 10^3/uL (1.7-8.2); BASOPHILS % (AUTO) 0.5 % (0-2); EOSINOPHILS % (AUTO) 0.7 % (0-6); HEMATOCRIT 35.1 % (37.9-51.0); HEMOGLOBIN 11.6 g/dL (13.5-17.0); HGB HCT DIFFERENCE -0.3; LYMPHOCYTES % (AUTO) 13.2 % (13-45); MEAN CORPUSCULAR HEMOGLOBIN 31.6 pg (27.0-33.4); MEAN CORPUSCULAR HGB CONC 33.1 g/dL (32.0-36.0); MEAN CORPUSCULAR VOLUME 95 fl (80-97); MONOCYTES % (AUTO) 9.4 % (3-13); RED BLOOD COUNT 3.67 10^6/uL (4.35-5.55); RED CELL DISTRIBUTION WIDTH 14.2 % (11.5-14.0); SEGMENTED NEUTROPHILS % (AUTO) 76.2 % (42-78); WHITE BLOOD COUNT 11.3 10^3/uL (4.0-10.5)
[2016-08-31 16:16] LABS: PROTHROMBIN TIME 15.7 SEC (11.4-15.4)
[2016-08-31 16:17] LABS: PARTIAL THROMBOPLASTIN TIME 38.3 SEC (23.5-35.8)
[2016-08-31 16:26] LABS: ALANINE AMINOTRANSFERASE 25 U/L (21-72); ALBUMIN 3.7 g/dL (3.5-5.0); ALKALINE PHOSPHATASE 96 U/L (38-126); ANION GAP 12 (5-19); ASPARTATE AMINO TRANSFERASE 25 U/L (17-59); BILIRUBIN,DIRECT 0.3 mg/dL (0.0-0.4); BILIRUBIN,TOTAL 0.9 mg/dL (0.2-1.3); BLOOD UREA NITROGEN 25 mg/dL (7-20); CALCIUM 9.2 mg/dL (8.4-10.2); CARBON DIOXIDE 31 mmol/L (22-30); CHLORIDE 101 mmol/L (98-107); CREATININE RESULT 0.83 mg/dL (0.52-1.25); GLUCOSE 93 mg/dL (75-110); POTASSIUM 3.6 mmol/L (3.6-5.0); SODIUM 143.8 mmol/L (137-145); TOTAL PROTEIN 7.1 g/dL (6.3-8.2)
--- NOTE | 2016-08-31 16:45 | RADIOLOGY REPORT (SQ) ---
EXAM DESCRIPTION: CHEST SINGLE VIEW COMPLETED DATE/TIME: 08/31/2016 4:35 pm REASON FOR STUDY: ams COMPARISON: 08/25/2016 EXAM PARAMETERS: NUMBER OF VIEWS: One view. TECHNIQUE: Single frontal radiographic view of the chest acquired. RADIATION DOSE: NA LIMITATIONS: None. FINDINGS: LUNGS AND PLEURA: No opacities, masses or pneumothorax. No pleural effusion. MEDIASTINUM AND HILAR STRUCTURES: No masses. Contour normal. HEART AND VASCULAR STRUCTURES: Heart normal in size. Normal vasculature. BONES: No acute findings. HARDWARE: None in the chest. OTHER: No other significant finding. IMPRESSION: NO ACUTE RADIOGRAPHIC FINDING IN THE CHEST. TECHNICAL DOCUMENTATION: JOB ID: [id number]
--- NOTE | 2016-08-31 17:05 | RADIOLOGY REPORT (SQ) ---
EXAM DESCRIPTION: CT HEAD WITHOUT COMPLETED DATE/TIME: 08/31/2016 4:54 pm REASON FOR STUDY: ams COMPARISON: None. TECHNIQUE: Axial images acquired through the brain without intravenous contrast. Images reviewed wi th bone, brain and subdural windows. Images stored on PACS. All CT scanners at this facility use dose modulation, iterative reconstruction, and/or weight based d osing when appropriate to reduce radiation dose to as low as reasonably achievable (ALARA). [facility]: Dose Right [facility]: CareDose [facility]: Dose Right [facility]: Teradose 4D [facility]: Smart Ti Knight RADIATION DOSE: Up-to-date CT equipment and radiation dose reduction techniques were employed. CTDIv ol: 28.0 mGy. DLP: 560 mGy-cm.mGy. LIMITATIONS: None. FINDINGS: VENTRICLES: Prominent. CEREBRUM: No masses. No hemorrhage. No midline shift. Areas of low density in the white matter mos t likely due to chronic micro-vascular ischemic change; a left subinsular lacunar infarct is present. No evidence for acute infarction. CEREBELLUM: No masses. No hemorrhage. No alteration of density. No evidence for acute infarction. EXTRAAXIAL SPACES: Age-related involutional change. No fluid collections. No masses. ORBITS AND GLOBE: No intra- or extraconal masses. Normal contour of globe without masses. CALVARIUM: No fracture. PARANASAL SINUSES: No fluid or mucosal thickening. SOFT TISSUES: No mass or hematoma. OTHER: Dense atherosclerotic vascular calcifications are seen within the cavernous segments of the in ternal carotid arteries. IMPRESSION: CHRONIC CHANGES OF ATROPHY AND MICROVASCULAR ISCHEMIA. NO ACUTE PROCESS. TECHNICAL DOCUMENTATION: JOB ID: [id number] Quality ID # [id number]: Final reports with documentation of one or more dose reduction techniques (e.g., Au tomated exposure control, adjustment of the mA and/or kV according to patient size, use of iterative reconstruction technique) 2010 [employer]- All Rights Reserved
[2016-08-31] MEDS ORDERED: NORMAL SALINE 1000 ML 1,000 ML IV ONE (20:01)
[2016-08-31 21:47] LABS: AMORPHOUS SEDIMENT,URINE 3+ /HPF; APPEARANCE,URINE CLOUDY; BILIRUBIN,URINE NEGATIVE (NEGATIVE); GLUCOSE, URINE 50 mg/dL (NEGATIVE); KETONES,URINE 20 mg/dL (NEGATIVE); LEUKOCYTE ESTERASE,URINE TRACE (NEGATIVE); NITRITE,URINE NEGATIVE (NEGATIVE); PROTEIN,URINE 30 mg/dL (NEGATIVE); URINE SPECIFIC GRAVITY 1.021; UROBILINOGEN,URINE NEGATIVE mg/dL (<2.0)
[2016-08-31 23:48] VITALS: BP 141/67
== END 2016-08-31 23:00 ==
LOC: ER 15:01
DX: F03.91 Unspecified dementia, unspecified severity, with behavioral disturbance (principal); S72.001D Fracture of unspecified part of neck of right femur, subsequent encounter for closed fracture with routine healing; W19.XXXD Unspecified fall, subsequent encounter; Z98.890 Other specified postprocedural states; I10 Essential (primary) hypertension; E11.9 Type 2 diabetes mellitus without complications; Z87.891 Personal history of nicotine dependence
CPT/HCPCS: 99285; 96372; 36415; 82550; 85025; 85610; 85730; 80053; 81001; 71010; 70450; J1630; J7030

== ENCOUNTER → 2017-01-08 | Emergency (ER) | payer OTHER, MEDICARE ==
[~2017-01-08] MED LIST: ACETAMINOPHEN 325 MG TABLET ONE; BUSPIRONE HCL 10 MG TABLET PO ONE; BUSPIRONE HCL 10 MG TABLET PO SCH; DIVALPROEX SODIUM 500 MG TAB.SR.24H PO ONE; DIVALPROEX SODIUM 500 MG TAB.SR.24H PO SCH
[2017-01-08] MEDS: HALOPERIDOL 5 MG TABLET PO SCH (17:39)
[2017-01-08 17:44] LABS: ABSOLUTE EOSINOPHILS # (AUTO) 0.1 10^3/uL (0.0-0.6); ABSOLUTE LYMPHOCYTES (AUTO) 1.9 10^3/uL (0.5-4.7); ABSOLUTE MONOCYTES (AUTO) 0.7 10^3/uL (0.1-1.4); ABSOLUTE NEUT (AUTO) 4.6 10^3/uL (1.7-8.2); BASOPHILS % (AUTO) 0.7 % (0-2); EOSINOPHILS % (AUTO) 1.8 % (0-6); HEMATOCRIT 35.7 % (37.9-51.0); HEMOGLOBIN 12.2 g/dL (13.5-17.0); HGB HCT DIFFERENCE 0.9; LYMPHOCYTES % (AUTO) 26.4 % (13-45); MEAN CORPUSCULAR HEMOGLOBIN 31.9 pg (27.0-33.4); MEAN CORPUSCULAR HGB CONC 34.1 g/dL (32.0-36.0); MEAN CORPUSCULAR VOLUME 94 fl (80-97); MONOCYTES % (AUTO) 8.9 % (3-13); RED BLOOD COUNT 3.82 10^6/uL (4.35-5.55); RED CELL DISTRIBUTION WIDTH 14.9 % (11.5-14.0); SEGMENTED NEUTROPHILS % (AUTO) 62.2 % (42-78); WHITE BLOOD COUNT 7.4 10^3/uL (4.0-10.5)
[2017-01-08 18:10] LABS: ALANINE AMINOTRANSFERASE 42 U/L (21-72); ALBUMIN 3.7 g/dL (3.5-5.0); ALKALINE PHOSPHATASE 86 U/L (38-126); ANION GAP 7 (5-19); ASPARTATE AMINO TRANSFERASE 26 U/L (17-59); BILIRUBIN,DIRECT 0.4 mg/dL (0.0-0.4); BILIRUBIN,TOTAL 0.6 mg/dL (0.2-1.3); BLOOD UREA NITROGEN 19 mg/dL (7-20); CALCIUM 9.6 mg/dL (8.4-10.2); CARBON DIOXIDE 35 mmol/L (22-30); CHLORIDE 103 mmol/L (98-107); CREATININE RESULT 0.98 mg/dL (0.52-1.25); GLUCOSE 97 mg/dL (75-110); POTASSIUM 3.8 mmol/L (3.6-5.0); SODIUM 145.1 mmol/L (137-145); TOTAL PROTEIN 6.4 g/dL (6.3-8.2)
[2017-01-08 18:58] LABS: APPEARANCE,URINE CLEAR; BILIRUBIN,URINE NEGATIVE (NEGATIVE); GLUCOSE, URINE 50 mg/dL (NEGATIVE); KETONES,URINE NEGATIVE (NEGATIVE); LEUKOCYTE ESTERASE,URINE NEGATIVE (NEGATIVE); NITRITE,URINE NEGATIVE (NEGATIVE); PROTEIN,URINE NEGATIVE (NEGATIVE); URINE SPECIFIC GRAVITY 1.017; UROBILINOGEN,URINE NEGATIVE mg/dL (<2.0)
--- NOTE | 2017-01-08 22:39 | ER Document Report ---
ED General - General Chief Complaint: Psych Problem Stated Complaint: ALTERED MENTAL STATUS Time Seen by Provider: 01/08/17 17:12 Notes: The patient is a 71-year-old male, past medical history Alzheimer's, chronic back pain, presents with his son after he is exhibiting more aggressive behavior towards family members in the house and the son is concerned that he is unable to live at the house anymore due to safety of the other family members. Patient is cooperative in the ER and is only complaining of his usual left lower back pain. TRAVEL OUTSIDE OF THE [place] IN LAST 30 DAYS: No - Related Data Allergies/Adverse Reactions: No Known Allergies Allergy (Verified 08/31/16 15:18) Home Medications: Current Home Medications Haloperidol [Haldol 1 Mg Tablet] 1 mg PO BID 01/08/17 [History] Past Medical History - General Information source: Patient, Relative - Social History Smoking Status: Former Smoker Chew tobacco use (# tins/day): No Frequency of alcohol use: None Drug Abuse: None Family History: CAD - Dad had GA at age 54. Patient has suicidal ideation: No Patient has homicidal ideation: No - Past Medical History Cardiac Medical History: Reports: Hx Hypertension Endocrine Medical History: Reports: Hx Diabetes Mellitus Type 2 Renal/ Medical History: Reports: Hx Kidney Stones. Denies: Hx Peritoneal Dialysis Past Surgical History: Reports: Hx Kidney (Renal Surgery) - kidney stones, Hx Orthopedic Surgery - right knee ligament surgery, right hip fracture repair - Immunizations Hx Diphtheria, Pertussis, Tetanus Vaccination: No Hx Pneumococcal Vaccination: 02/24/11 Review of Systems - Review of Systems Notes: REVIEW OF SYSTEMS: CONSTITUTIONAL: -fevers, -chills EENT: -eye pain, -difficulty swallowing, -nasal congestion CARDIOVASCULAR:-chest pain, -syncope. RESPIRATORY: -cough, -SOB GASTROINTESTINAL: -abdominal pain, - nausea, -vomiting, -diarrhea GENITOURINARY: -dysuria, -hematuria MUSCULOSKELETAL: +left lower back pain, -neck pain SKIN: -rash or skin lesions. HEMATOLOGIC: -easy bruising or bleeding. LYMPHATIC: -swollen, enlarged glands. NEUROLOGICAL: -altered mental status or loss of consciousness, -headache, - neurologic symptoms PSYCHIATRIC: -anxiety, -depression. ALL OTHER SYSTEMS REVIEWED AND NEGATIVE. Physical Exam - Notes Notes: PHYSICAL EXAMINATION: GENERAL: Well-appearing, well-nourished and in no acute distress. HEAD: Atraumatic, normocephalic. EYES: Pupils equal round and reactive to light, extraocular movements intact, sclera anicteric, conjunctiva are normal. ENT: nares patent, oropharynx clear without exudates. Moist mucous membranes. NECK: Normal range of motion, supple without lymphadenopathy LUNGS: Breath sounds clear to auscultation bilaterally and equal. No wheezes rales or rhonchi. HEART: Regular rate and rhythm without murmurs ABDOMEN: Soft, nontender, normoactive bowel sounds. No guarding, no rebound. No masses appreciated. EXTREMITIES: Normal range of motion, no pitting or edema. No cyanosis. Mild left lower back tenderness. NEUROLOGICAL: Cranial nerves grossly intact. Normal speech, normal gait. Normal sensory and motor exams. PSYCH: Normal mood, normal affect. SKIN: Warm, Dry, normal turgor, no rashes or lesions noted. Course - Re-evaluation Re-evalutation: 01/08/17 23:27 Pt's left lower back pain is chronic in nature. There is no red flag signs for low back pain at this time. No medical emergency apparent at this time. Will continue patient's Haldol 5 mg twice a day and have case management and mental health help with evaluation and placement. - Laboratory Result Diagrams: 01/08/17 17:32 01/08/17 17:32 Laboratory results interpreted by me: 01/08/17 01/08/17 01/08/17 17:32 17:32 18:15 RBC 3.82 L Hgb 12.2 L Hct 35.7 L RDW 14.9 H Sodium 145.1 H Carbon Dioxide 35 H Urine Glucose (UA) 50 H Discharge - Discharge Clinical Impression: Aggressive behavior Dementia Qualifiers: Dementia type: unspecified type Dementia behavioral disturbance: with behavioral disturbance Qualified Code(s): F03.91 - Unspecified dementia with behavioral disturbance Condition: Stable Disposition: PSYCH HOSP/UNIT
[2017-01-09] MEDS: HALOPERIDOL 5 MG TABLET PO SCH (09:58)
--- NOTE | 2017-01-09 10:36 | ER Document Report ---
Doctor's Note Notes: 01/09/17 10:36 71-year-old male whose family presented secondary to the patient being more aggressive at home secondary to dementia and an elderly age. Labs as recorded. Vital signs stable. second time worker [facility] is attempting to find placement for the patient.
[2017-01-09] MEDS: DIVALPROEX SODIUM 500 MG TAB.SR.24H PO SCH (23:39)
[2017-01-09] MEDS: BUSPIRONE HCL 10 MG TABLET PO SCH (23:41)
[2017-01-10] MEDS: BUSPIRONE HCL 10 MG TABLET PO SCH ×2 (09:10→23:29)
[2017-01-10] MEDS: DIVALPROEX SODIUM 500 MG TAB.SR.24H PO SCH ×2 (09:10→23:30)
--- NOTE | 2017-01-10 10:31 | ER Document Report ---
Doctor's Note Notes: 01/10/17 10:29 Rounds: Patient was brought in because of increasing bizarre and aggressive behavior at home. He is known to have Alzheimer's dementia. Vital signs are all essentially normal. Lab studies are all essentially normal. There have been no grounds to admit this patient to the hospital. Patient appears to be medically stable for transfer or discharge. At this time, patient is apparently a social hold in the department. Tito Holder MD
[2017-01-11] MEDS: BUSPIRONE HCL 10 MG TABLET PO SCH ×2 (09:17→22:43)
[2017-01-11] MEDS: DIVALPROEX SODIUM 500 MG TAB.SR.24H PO SCH ×2 (09:18→22:43)
--- NOTE | 2017-01-11 10:07 | ER Document Report ---
Doctor's Note Notes: 01/11/17 10:07 Social Rounds: Patient remained stable. No change in condition or activity. Vital signs are all normal. Tito Holder MD
[2017-01-11 19:25] VITALS: BP 150/76
== END ==
LOC: ER 16:06
DX: G30.9 Alzheimer's disease, unspecified (principal); F02.81 Dementia in other diseases classified elsewhere, unspecified severity, with behavioral disturbance; I10 Essential (primary) hypertension; E11.9 Type 2 diabetes mellitus without complications; M54.5 Low back pain; G89.29 Other chronic pain; Z87.891 Personal history of nicotine dependence; Z79.899 Other long term (current) drug therapy
CPT/HCPCS: 36415; 80053; 81001; 85025